=== PATIENT | female | born 1930 | race Caucasian/White ===

== ENCOUNTER → 2017-02-01 | Outpatient (CLI) | payer MEDICARE ==
[~2017-02-01] MED LIST: AMLO5 PO; APIX2.5T PO; ASPI81TA82 PO; ATOR20TA PO; CLOP75 PO; CYAN25003 PO; ESZO3 PO; FURO1TAB93 PO; ISOS30 PO; LISI5 PO; METO25 PO; MIRA33502 PO; NITR.3 SL; SPIR25TA PO; ZOFR4TAB3 SL
== END ==
LOC: CLAB 15:08
PROVIDERS: ATTEND Internal Medicine Cardiovascular Disease
DX: R06.02 Shortness of breath (principal)
CPT/HCPCS: 36415; 85379

== ENCOUNTER 2017-05-18 14:05 | Inpatient (IN) | payer MEDICARE ==
[~2017-05-18] VITALS: Ht 165.1 cm; Wt 71.5 kg
[2017-05-18] VITALS (9 sets, daily range): BP systolic 148–202; BP diastolic 71–103; PULSE 65–85; RESP 18–32; TEMP 97.4–98.4; O2SAT 91–97
[2017-05-18] MEDS ORDERED: FUROSEMIDE 40 MG/4 ML VIAL IV PUSH ONE (14:45)
[2017-05-18] MEDS ORDERED: SODIUM CHLORIDE 0.9% FLUSH 10 ML FLUSH IVF PRN (14:45)
[2017-05-18] MEDS ORDERED: ASPIRIN 81 MG CHEW TAB PO ONE (14:45)
--- NOTE | 2017-05-18 14:49 | PD ---
HPI Chief Complaint: Chest Pain Time Seen by Provider: 14:26 Travel History International Travel<30 days: No Contact w/Intl Traveler<30days: No Traveled to known affect area: No History of Present Illness HPI 86-year-old female with history of CHF, CAD with history of 5 bypasses , and renal insufficiency, presents the emergency department with worsening dyspnea and shortness of breath over the past several days. Patient has had cough at night and inability to lay flat secondary to feeling short of breath. Patient recently traveled to [place] and back for a siblings . Patient denies fever or chills. She denies chest pain just dyspnea and tachypnea. He has no nausea, vomiting, or diarrhea. She denies urinary symptoms. Patient is allergic to sulfa and penicillin. PFSH Past Medical History Hx Anticoagulant Therapy: Yes (plavix) Arthritis: Yes Asthma: No Blood Disorders: No Anxiety: Yes Depression: Yes Heart Rhythm Problems: Yes (Afib) Cancer: Yes (colon) Cardiac Catheterization: Yes Cardiovascular Problems: Yes (pacemaker ) High Cholesterol: Yes Chemotherapy: No Chest Pain: Yes Congestive Heart Failure: Yes COPD: No Cerebrovascular Accident: No Diabetes: No Diminished Hearing: No Diverticulitis: Yes Endocrine: No Gastrointestinal Disorders: Yes (GALLSTONES ) GERD: No Glaucoma: No Genitourinary: No Headaches: Yes Hiatal Hernia: No Hypertension: Yes Immune Disorder: No Musculoskeletal: Yes Neurologic: No Psychiatric: No Reproductive: No Respiratory: No Immunizations Current: No Migraines: No Myocardial Infarction: Yes (X 1) Radiation Therapy: No Seizures: No Sleep Apnea: No Ulcer: No Menopausal: Yes : 3 Para: 2 Miscarriage: 1 Tubal Ligation: Yes Past Surgical History Abdominal Surgery: No AICD: No Appendectomy: No Arteriovenous Shunt: No Cardiac Surgery: Yes (PACEMAKER - FEB 2015) Coronary Artery Bypass Graft: Yes (5 VESSEL 2001) Ear Surgery: No Endocrine Surgery: No Eye Surgery: Yes (CATARACT REMOVAL TO FLORENCIA EYES) Genitourinary Surgery: Yes Gynecologic Surgery: Yes Hysterectomy: Yes Insulin Pump: No Joint Replacement: No Oral Surgery: No Pacemaker: Yes Thoracic Surgery: No Tonsillectomy: Yes Other Surgery: Yes Social History Alcohol Use: No Tobacco Use: No Substance Use: No Allergies-Medications (Allergen,Severity, Reaction): Coded Allergies: Sulfa (Sulfonamide Antibiotics) (Unverified Allergy, Unknown, UNKNOWN, ) penicillin G (Unverified Allergy, Unknown, [facility], 02/26/17) Reported Meds & Prescriptions Reported Meds & Active Scripts Active Metoprolol Tartrate 25 mg (Metoprolol Tartrate) 25 Mg Tab 12.5 Mg PO Q12HR 30 Days Imdur 30 Mg (Isosorbide Mononitrate) 30 Mg Tabcr 30 Mg PO DAILY@07 30 Days Plavix (Clopidogrel Bisulfate) 75 Mg Tab 75 Mg PO DAILY 30 Days Norvasc (Amlodipine Besylate) 5 Mg Tab 5 Mg PO DAILY 30 Days Zofran ODT (Ondansetron HCl) 4 Mg Tab 4 Mg SL Q6H PRN FOR NAUSEA/VOMITING Prinivil 5 mg (Lisinopril) 5 Mg Tab 5 Mg PO DAILY 30 Days Furosemide 40 Mg Tab 40 Mg PO BID@09,18 30 Days Reported Miralax (Polyethylene Glycol) 255 Gm Powd 1 Capful PO DAILY MIX 1 CAPFUL (17 GM) IN 8 OZ OF WATER Vitamin B-12 (Cyanocobalamin) 2,500 Mcg Sub 2,500 Mcg PO DAILY Atorvastatin 20 mg tab (Atorvastatin Calcium) 20 Mg Tab 20 Mg PO HS 30 Days Spironolactone 25 Mg Tab 25 Mg PO BID Aspir-81 (Aspirin) 81 Mg Tab 81 Mg PO DAILY Eliquis (Apixaban) 2.5 Mg Tab 2.5 Mg PO BID Lunesta (Eszopiclone) 3 Mg Tab 3 Mg PO HS PRN Nitrostat (Nitroglycerin) 0.3 Mg Subl 0 SL DIRECTED PRN Review of Systems Except as stated in HPI: all other systems reviewed are Neg General / Constitutional: No: Fever, Chills Eyes: No: Visual changes HENT: No: Headaches Cardiovascular: Positive: Chest Pain or Discomfort (chest tightness), Irregular Rhythm, Dyspnea on exertion, No: Palpitations, Tachycardia, Diaphoresis, Syncope, Varicosities, Edema, Cyanosis, Varicosities, Phlebitis, Claudication Respiratory: Positive: Cough, Shortness of Breath, Orthopnea, No: Wheezing, Sneezing, Hemoptysis, Stridor, Night Sweats, Pleuritic Pain, Other Gastrointestinal: No: Nausea, Vomiting, Diarrhea, Abdominal Pain Genitourinary: No: Urgency, Frequency, Dysuria Musculoskeletal: No: Pain Skin: No Rash Neurologic: No: Weakness Psychiatric: No: Depression Endocrine: No: Polydipsia Hematologic/Lymphatic: No: Easy Bruising Physical Exam Narrative GENERAL: Patient is in mild to moderate distress. She is noted to be tachypneic. SKIN: Warm and dry. Normal color. No diaphoresis. HEAD: Atraumatic. Normocephalic. EYES: Pupils equal and round. No scleral icterus. No injection or drainage. ENT: No nasal bleeding or discharge. Mucous membranes pink and moist. Pharynx is clear. Airway is patent. NECK: Trachea midline. Supple nontender. CARDIOVASCULAR: Irregular rate and rhythm. 2 over 5 systolic murmur noted. RESPIRATORY: No accessory muscle use. Mild crackles in both bases to auscultation. Breath sounds equal bilaterally. No rales or rhonchi. GASTROINTESTINAL: Abdomen soft, non-tender, nondistended. Hepatic and splenic margins not palpable. MUSCULOSKELETAL: Extremities without clubbing, cyanosis, or edema. No obvious deformities. NEUROLOGICAL: Awake and alert. No obvious cranial nerve deficits. Motor grossly within normal limits. Five out of 5 muscle strength in the arms and legs. Normal speech. PSYCHIATRIC: Appropriate mood and affect; insight and judgment normal. Data Data Last Documented VS Vital Signs Date Time Temp Pulse Resp B/P (MAP) Pulse Ox O2 Delivery O2 Flow Rate FiO2 05/18/17 14:56 181/95 (123) 05/18/17 14:36 96 Room Air 05/18/17 14:36 85 24 05/18/17 14:36 98.2 Orders Orders Electrocardiogram (05/18/17 14:32) B-Type Natriuretic Peptide (05/18/17 14:32) Ckmb (Isoenzyme) Profile (05/18/17 14:32) Complete Blood Count With Diff (05/18/17 14:32) Comprehensive Metabolic Panel (05/18/17 14:32) Magnesium (Mg) (05/18/17 14:32) Prothrombin Time / Inr (Pt) (05/18/17 14:32) Act Partial Throm Time (Ptt) (05/18/17 14:32) Troponin I (05/18/17 14:32) Chest, Single Ap (05/18/17 14:32) Ecg Monitoring (05/18/17 14:32) Bilateral Bp Monitoring (05/18/17 14:32) Iv Access Insert/Monitor (05/18/17 14:32) Oximetry (05/18/17 14:32) Oxygen Administration (05/18/17 14:32) Aspirin Chew (Aspirin Chew) (05/18/17 14:45) Sodium Chloride 0.9% Flush (Ns Flush) (05/18/17 14:45) Furosemide Inj (Lasix Inj) (05/18/17 14:45) CKMB (05/18/17 14:42) CKMB% (05/18/17 14:42) Nitroglycerin 2% Oint (Nitroglycerin 2% (05/18/17 16:00) Labs Laboratory Tests Test 05/18/17 14:42 White Blood Count 5.5 TH/MM3 Red Blood Count 4.65 MIL/MM3 Hemoglobin 11.0 GM/DL Hematocrit 34.6 % Mean Corpuscular Volume 74.5 FL Mean Corpuscular Hemoglobin 23.6 PG Mean Corpuscular Hemoglobin Concent 31.7 % Red Cell Distribution Width 19.1 % Platelet Count 227 TH/MM3 Mean Platelet Volume 7.9 FL Neutrophils (%) (Auto) 70.9 % Lymphocytes (%) (Auto) 13.4 % Monocytes (%) (Auto) 10.5 % Eosinophils (%) (Auto) 4.4 % Basophils (%) (Auto) 0.8 % Neutrophils # (Auto) 3.9 TH/MM3 Lymphocytes # (Auto) 0.7 TH/MM3 Monocytes # (Auto) 0.6 TH/MM3 Eosinophils # (Auto) 0.2 TH/MM3 Basophils # (Auto) 0.0 TH/MM3 CBC Comment DIFF FINAL Differential Comment Prothrombin Time 12.0 SEC Prothromb Time International Ratio 1.1 RATIO Activated Partial Thromboplast Time 28.2 SEC Blood Urea Nitrogen 26 MG/DL Creatinine 1.68 MG/DL Random Glucose 96 MG/DL Total Protein 7.3 GM/DL Albumin 3.8 GM/DL Calcium Level 8.9 MG/DL Magnesium Level 2.0 MG/DL Alkaline Phosphatase 111 U/L Aspartate Amino Transf (AST/SGOT) 33 U/L Alanine Aminotransferase (ALT/SGPT) 26 U/L Total Bilirubin 1.4 MG/DL Sodium Level 137 MEQ/L Potassium Level 4.1 MEQ/L Chloride Level 106 MEQ/L Carbon Dioxide Level 21.1 MEQ/L Anion Gap 10 MEQ/L Estimat Glomerular Filtration Rate 29 ML/MIN Total Creatine Kinase 234 U/L Creatine Kinase MB 7.4 NG/ML Creatine Kinase MB % 3.2 % Troponin I 0.06 NG/ML B-Type Natriuretic Peptide 372 PG/ML [facility] Medical Decision Making Medical Screen Exam Complete: Yes Emergency Medical Condition: Yes Medical Record Reviewed: Yes Differential Diagnosis Increasing dyspnea. CHF. Cardiac syndrome. Bronchitis. Pneumonia. Narrative Course Patient is tachypneic but appears medically stable at time of exam. She is able to speak in short sentences. EKG shows a regular rhythm, chronic ventricular pacemaker noted. There are nonspecific ST changes Chest x-ray is ordered. IV access is obtained and labs ordered including CBC, CMP, proBNP, PT PTT and INR. Urinalysis. Patient is given aspirin 324 mg by mouth. Patient is given Lasix 40 mg IV. Chest x-ray is read as negative for acute process per the radiologist. CBC shows hematocrit of 34.6, and hemoglobin of 11.0, consistent with chronic microcytic anemia. CMP is significant for BUN of 26, creatinine 1.68, GFR 29. ProBNP is 327, troponin is elevated 0.06. CK-MB is elevated at 7.4. Total creatinine kinase is 234. Coagulation studies show PT of 12.0, INR 1.1. Patient was discussed with Dr. Barbour who recommends 1 inch of nitroglycerin 2 % paste, and admission to the CICU. Call was placed to hospitalist for admission. Diagnosis Primary Impression: Chest pain at rest Additional Impressions: Elevated troponin Acute dyspnea Admitting Information Admitting Physician Requests: Admit Condition: Stable Arden Perez May 18, 2017 14:49
--- NOTE | 2017-05-18 15:01 | RADRPT ---
EXAM DATE/TIME: 05/18/2017 14:58 [facility] COMPARISON: CHEST SINGLE AP, May 03, 2016, 14:07. INDICATIONS : Chest pain. Cough. Short of breath. MEDICAL HISTORY : Myocardial infarction. SURGICAL HISTORY : CABG. Pacemaker. ENCOUNTER: Initial ACUITY: 1 week PAIN SCORE: 0/10 LOCATION: Bilateral chest FINDINGS: No infiltrate, effusion or pneumothorax. Heart size stable, upper limits of normal. Thoracic aorta is tortuous. There is a left-sided cardiac pacer. Previous median sternotomy. CONCLUSION: No evidence of acute cardiopulmonary disease. Tomasz Pink MD on May 18, 2017 at 14:59 Board Certified Radiologist. This report was verified electronically.
[2017-05-18 15:03] LABS: AUTOMATED NEUTROPHIL # 3.9 TH/MM3 (1.8-7.7); BASOPHIL % 0.8 % (0.0-2.0); EOSINOPHIL # 0.2 TH/MM3 (0-0.4); EOSINOPHIL % 4.4 % (0.0-4.0); HEMATOCRIT 34.6 % (35.0-46.0); LYMPH % 13.4 % (9.0-44.0); LYMPHOCYTE # 0.7 TH/MM3 (1.0-4.8); MEAN CELL VOLUME 74.5 FL (80.0-100.0); MEAN CORPUSCULAR HEMOGLOBIN 23.6 PG (27.0-34.0); MEAN CORPUSCULAR HGB CONC 31.7 % (32.0-36.0); MEAN PLATELET VOLUME 7.9 FL (7.0-11.0); MONO % 10.5 % (0.0-8.0); MONOCYTE # 0.6 TH/MM3 (0-0.9); NEUT % 70.9 % (16.0-70.0); PLATELET COUNT 227 TH/MM3 (150-450); RED BLOOD COUNT 4.65 MIL/MM3 (4.00-5.30); RED CELL DISTRIBUTION WIDTH 19.1 % (11.6-17.2); WHITE BLOOD COUNT 5.5 TH/MM3 (4.0-11.0)
[2017-05-18 15:38] LABS: ALBUMIN 3.8 GM/DL (3.4-5.0); ALT (GPT) 26 U/L (10-53); AST (GOT) 33 U/L (15-37); BICARBONATE 21.1 MEQ/L (21.0-32.0); BLOOD UREA NITROGEN 26 MG/DL (7-18); CALCIUM 8.9 MG/DL (8.5-10.1); CHLORIDE 106 MEQ/L (98-107); CREATININE 1.68 MG/DL (0.50-1.00); GLOMERULAR FILTRATION RATE 29 ML/MIN (>89); GLUCOSE,RANDOM 96 MG/DL (74-106); SODIUM (NA) 137 MEQ/L (136-145)
[2017-05-18 15:41] LABS: ALKALINE PHOSPHATASE 111 U/L (45-117); TOTAL BILIRUBIN ADULT 1.4 MG/DL (0.2-1.0); TOTAL PROTEIN 7.3 GM/DL (6.4-8.2); TROPONIN I 0.06 NG/ML (0.02-0.05)
[2017-05-18 15:44] LABS: INTERNATIONAL NORMALIZED RATIO 1.1 RATIO
[2017-05-18] MEDS ORDERED: NITROGLYCERIN 2% OINT 1 GM PACKET TOPICAL ONE (16:00)
[2017-05-18] MEDS ORDERED: SENNOSIDES 8.6 MG TAB PO PRN (16:30)
[2017-05-18] MEDS ORDERED: METOPROLOL TARTRATE 5 MG/5 ML VIAL IVS SCH (16:30)
[2017-05-18] MEDS ORDERED: SODIUM CHLORIDE 0.9% FLUSH 10 ML FLUSH IV FLUSH PRN (16:30)
[2017-05-18] MEDS ORDERED: MAGNESIUM HYDROXIDE SUSP 30 ML CUP PO PRN (16:30)
[2017-05-18] MEDS ORDERED: LACTULOSE SYRUP 20 GM/30 ML CUP PO PRN (16:30)
[2017-05-18] MEDS ORDERED: ONDANSETRON HCL 4 MG/2 ML VIAL IVP PRN (16:30)
[2017-05-18] MEDS ORDERED: BISACODYL 10 MG SUPP RECTAL PRN (16:30)
[2017-05-18] MEDS ORDERED: NALOXONE HCL 0.4 MG/ML AMP IV PUSH PRN (16:30)
[2017-05-18] MEDS ORDERED: SPIR25TA PO (16:51)
[2017-05-18] MEDS ORDERED: ATOR20TA15 PO (16:51)
[2017-05-18] MEDS ORDERED: ASPI81CH CHEW (16:51)
[2017-05-18] MEDS ORDERED: ESZO1TAB PO (16:51)
[2017-05-18] MEDS ORDERED: FURO20TA PO (16:51)
[2017-05-18] MEDS ORDERED: ISOS20TA PO (16:51)
[2017-05-18] MEDS ORDERED: PLAV75TA29 PO (16:51)
--- NOTE | 2017-05-18 18:06 | HHI.HP ---
[facility] Piter Mendoza MD Admission Diagnosis Chest Pain/Elevated Troponin Diagnoses: Chief Complaint: Chest pressure, shortness of breath Travel History International Travel<30 Days: No Contact w/Intl Traveler <30 Da: No Traveled to Known Affected Are: No History of Present Illness Written by Kyle Delgado, acting as scribe for Dr. Britton on 05/18/17 at 17:49. Patient is an 86-year-old female with primary medical history of CHF, CAD, CKD3 , arthritis, HTN, HLD, A. fib with GI bleed who came into the hospital for complaints of pressure in the chest, shortness of breath worsening. Patient states that in the past few days she has been having some shortness of breath, and also some dry cough. States that her brother just and she went to [place] for the and she was in the car for about 4 days. Reports that she had missed maybe 2 days of her Lasix medication because she was trying not to have to use the restroom often, but also states that right before going to [place], patient already had some shortness of breath and some chest pressure. Denies any anginal pain. Patient complains of right shoulder pain, attributes to arthritis but states it just started when she came to the hospital. Denies orthopnea. Denies any palpitations, headaches, dizziness. Denies any fevers, chills, nausea, vomiting, diarrhea. Review of Systems Except as stated in HPI: all other systems reviewed are Neg Past Family Social History Past Medical History CHF CAD CKD III Arthritis CVA - lacunar infarct HTN HLD A. fib GI bleed 2 -(Eliquis and xarelto use prior) Diverticulitis 6 sinus syndrome, status post PPM Past Surgical History CABG 5 PPM placement - secondary to sick sinus syndrome Cataract surgery Tonsillectomy Hysterectomy Reported Medications Reported Meds & Active Scripts Active Reported Aspirin 81 Mg Chew 81 Mg CHEW DAILY Plavix (Clopidogrel Bisulfate) 75 Mg Tab 75 Mg PO DAILY Spironolactone 25 Mg Tab 25 Mg PO BIDPC Atorvastatin (Atorvastatin Calcium) 20 Mg Tab 20 Mg PO HS Furosemide 20 Mg Tab 20 Mg PO BID Isosorbide Mononitrate 20 Mg Tab 30 Mg PO DAILY Take 2 doses 7 hours apart. Lunesta (Eszopiclone) 2 Mg Tab 3 Mg PO HS PRN Allergies: Coded Allergies: Sulfa (Sulfonamide Antibiotics) (Unverified Allergy, Unknown, UNKNOWN, ) penicillin G (Unverified Allergy, Unknown, [place], 02/26/17) Active Ordered Medications Current Medications Medications (Trade) Dose Ordered Sig/Little Route Start Time Stop Time Status Last Admin (NS Flush) 2 ml UNSCH PRN IV FLUSH 05/18/17 16:30 (NS Flush) 2 ml BID IV FLUSH 05/18/17 21:00 (Zofran Inj) 4 mg Q6H PRN IVP 05/18/17 16:30 (Narcan Inj) 0.4 mg UNSCH PRN IV PUSH 05/18/17 16:30 (Candie-Colace) 1 tab BID PO 05/18/17 21:00 (Milk Of Magnesia Liq) 30 ml Q12H PRN PO 05/18/17 16:30 (Senokot) 17.2 mg Q12H PRN PO 05/18/17 16:30 (Dulcolax Supp) 10 mg DAILY PRN RECTAL 05/18/17 16:30 (Lactulose Liq) 30 ml DAILY PRN PO 05/18/17 16:30 Family History Brother recently of fluid in his heart, CHF Father at the age of 64 due to CHF Social History Lives with Denies alcohol use and denies tobacco use Denies illicit drug use Physical Exam Vital Signs Vital Signs Date Time Temp Pulse Resp B/P (MAP) Pulse Ox O2 Delivery O2 Flow Rate FiO2 05/18/17 17:30 05/18/17 16:58 73 20 148/71 (96) 94 Room Air 05/18/17 16:45 65 20 170/85 (113) 96 Room Air 05/18/17 16:40 77 20 171/87 (115) 95 Room Air 05/18/17 14:56 181/95 (123) 05/18/17 14:36 96 Room Air 05/18/17 14:36 85 24 97 Room Air 05/18/17 14:36 18 96 Room Air 05/18/17 14:36 98.2 85 20 202/103 (136) 96 Room Air 05/18/17 14:08 98.4 77 32 189/86 (120) 91 Physical Exam GENERAL: elderly female, appears comfortable SKIN: Warm and dry. HEAD: Normocephalic. EYES: Pupils equal round and reactive. Extraocular motions intact. No scleral icterus. No injection or drainage. ENT: Nose without bleeding. Throat without erythema. Uvula midline. Airway patent. NECK: Trachea midline. No JVD or lymphadenopathy. Supple. CARDIOVASCULAR: somewhat irregular without murmurs RESPIRATORY: Breath sounds equal bilaterally. No wheezes , no obvious crackles GASTROINTESTINAL: Abdomen soft, nondistended. some discomfort to deep palpation. Bowel sounds active 4. MUSCULOSKELETAL: Extremities without edema. Right upper extremity discomfort w palpation of the shoulder joint but ROM is not limited. NEUROLOGICAL: Awake and alert. Oriented to person, place, time. Motor and sensory grossly within normal limits. Normal speech. Laboratory Laboratory Tests Test 05/18/17 14:42 White Blood Count 5.5 Red Blood Count 4.65 Hemoglobin 11.0 Hematocrit 34.6 Mean Corpuscular Volume 74.5 Mean Corpuscular Hemoglobin 23.6 Mean Corpuscular Hemoglobin Concent 31.7 Red Cell Distribution Width 19.1 Platelet Count 227 Mean Platelet Volume 7.9 Neutrophils (%) (Auto) 70.9 Lymphocytes (%) (Auto) 13.4 Monocytes (%) (Auto) 10.5 Eosinophils (%) (Auto) 4.4 Basophils (%) (Auto) 0.8 Neutrophils # (Auto) 3.9 Lymphocytes # (Auto) 0.7 Monocytes # (Auto) 0.6 Eosinophils # (Auto) 0.2 Basophils # (Auto) 0.0 CBC Comment DIFF FINAL Differential Comment Prothrombin Time 12.0 Prothromb Time International Ratio 1.1 Activated Partial Thromboplast Time 28.2 Blood Urea Nitrogen 26 Creatinine 1.68 Random Glucose 96 Total Protein 7.3 Albumin 3.8 Calcium Level 8.9 Magnesium Level 2.0 Alkaline Phosphatase 111 Aspartate Amino Transf (AST/SGOT) 33 Alanine Aminotransferase (ALT/SGPT) 26 Total Bilirubin 1.4 Sodium Level 137 Potassium Level 4.1 Chloride Level 106 Carbon Dioxide Level 21.1 Anion Gap 10 Estimat Glomerular Filtration Rate 29 Total Creatine Kinase 234 Creatine Kinase MB 7.4 Creatine Kinase MB % 3.2 Troponin I 0.06 B-Type Natriuretic Peptide 372 Result Diagram: 05/18/17 1442 05/18/17 1442 Imaging Last Impressions Chest X-Ray 05/18/17 1432 Signed Impressions: Service Date/Time: Thursday, May 18, 2017 14:58 - CONCLUSION: No evidence of acute cardiopulmonary disease. MD Mike Recio VTE Risk Assessment Caprini VTE Risk Assessment: Mod/High Risk (score >= 2) Caprini Risk Assessment Model Point Value = 1 Point Value = 2 Point Value = 3 Point Value = 5 Age 41-60 Minor surgery BMI > 25 kg/m2 Swollen legs Varicose veins or History of unexplained or recurrent spontaneous Oral contraceptives or hormone replacement Sepsis (< 1 month) Serious lung disease, including pneumonia (< 1 month) Abnormal pulmonary function Acute myocardial infarction Congestive heart failure (< 1 month) History of inflammatory bowel disease Medical patient at bed rest Age 61-74 Arthroscopic surgery Major open surgery (> 45 min) Laparoscopic surgery (> 45 min) Malignancy Confined to bed (> 72 hours) Immobilizing plaster cast Central venous access Age >= 75 History of VTE Family history of VTE Factor V Leiden Prothrombin [id number] Lupus anticoagulant Anticardiolipin antibodies Elevated serum homocysteine Heparin-induced thrombocytopenia Other congenital or acquired thrombophilia Stroke (< 1 month) Elective arthroplasty Hip, pelvis, or leg fracture Acute spinal cord injury (< 1 month) Prophylaxis Regimen Total Risk Factor Score Risk Level Prophylaxis Regimen 0-1 Low Early ambulation 2 Moderate Order ONE of the following: *Sequential Compression Device (SCD) *Heparin 5000 units SQ BID 3-4 Higher Order ONE of the following medications: *Heparin 5000 units SQ TID *Enoxaparin/Lovenox 40 mg SQ daily (WT < 150 kg, CrCl > 30 mL/min) *Enoxaparin/Lovenox 30 mg SQ daily (WT < 150 kg, CrCl > 10-29 mL/min) *Enoxaparin/Lovenox 30 mg SQ BID (WT < 150 kg, CrCl > 30 mL/min) AND/OR *Sequential Compression Device (SCD) 5 or more Highest Order ONE of the following medications: *Heparin 5000 units SQ TID (Preferred with Epidurals) *Enoxaparin/Lovenox 40 mg SQ daily (WT < 150 kg, CrCl > 30 mL/min) *Enoxaparin/Lovenox 30 mg SQ daily (WT < 150 kg, CrCl > 10-29 mL/min) *Enoxaparin/Lovenox 30 mg SQ BID (WT < 150 kg, CrCl > 30 mL/min) AND *Sequential Compression Device (SCD) Assessment and Plan Problem List: (1) Acute exacerbation of CHF (congestive heart failure) ICD Code: I50.9 - Heart failure, unspecified Status: Acute (2) Acute dyspnea ICD Code: R06.00 - Dyspnea, unspecified Status: Acute (3) Elevated troponin ICD Code: R74.8 - Abnormal levels of other serum enzymes Status: Acute (4) CKD (chronic kidney disease) ICD Code: N18.9 - Chronic kidney disease Status: Chronic (5) CAD (coronary artery disease) ICD Code: I25.10 - CAD (coronary artery disease) Status: Chronic (6) Atrial fibrillation ICD Code: I48.91 - Atrial fibrillation Status: Chronic (7) Hypertension ICD Code: I10 - Hypertension Status: Chronic Assessment and Plan Patient is an 86-year-old female with primary medical history of CHF, CAD, CKD 3 , arthritis, HTN, HLD, A. fib with GI bleed who came into the hospital for complaints of pressure in the chest, shortness of breath worsening. Acute exacerbation of CHF CHF, diastolic dysfunction- last ECHO in the inpatient setting 2014, EF 50-55% - Worsening shortness of breath, dry cough, patient has missed a couple of her doses of Lasix from home - Chest x-ray showed no evidence of acute cardiopulmonary disease - BNP 372 - Lasix IV 40 mg given in ED, pt responded to this and felt better, will continue Lasix 40mg, spironolactone - Fluid restriction, 1500 ML's fluids daily, low sodium diet - EKG reviewed - Consult cardiology, patient is known to Dr. Mendoza - Check 2D echo as there isn't one on file Patient complaints of chest pressure, rule out ACS - Trop 0.06 - Serial EKG, serial troponin serial CK - Nitroglycerin, morphine when necessary, on ASA/plavix Acute Kidney Injury, on chronic kidney disease - Baseline 1.2 - 1.5, slightly elevated at 1.68 - Avoid nephrotoxins - Will not give fluid hydration secondary to worsening CHF - Monitor renal indices Atrial fibrillation, chronic - Had 2 times GI bleed secondary to Xarelto and Eliquis use - Continue Plavix and aspirin HTN- somewhat elevated. home meds resumed. added clonidine/hydralazine prn BP > 160/90 HLD-home med resumed CABG x5 Hx PPM - SSS - Continue home meds isosorbide, spironolactone - Monitor BP trend DVT prop SCD This note was transcribed by alfonso Delgado. I, Dr. Cookie Britton personally performed the history, physical exam, and medical decision making; and confirmed the accuracy of the information in the transcribed note. Authenticated by Dr. Cookie Britton on 05/18/17 at 1740. Code Status DO NOT RESUSCITATE Discussed Condition With Patient, , nursing, ED attending Physician Certification 2 Midnight Certification Type: Admission for Inpatient Services Order for Inpatient Services The services are ordered in accordance with Medicare regulations or non- Medicare payer requirements, as applicable. In the case of services not specified as inpatient-only, they are appropriately provided as inpatient services in accordance with the 2-midnight benchmark. Estimated LOS (days): 2 days is the estimated time the patient will need to remain in the hospital, assuming treatment plan goals are met and no additional complications. Post-Hospital Plan: Home Problem Qualifiers (1) Acute exacerbation of CHF (congestive heart failure): Qualified Codes: I50.9 - Heart failure, unspecified Kyle Lauren May 18, 2017 18:06 Cookie Britton MD May 18, 2017 21:27
[2017-05-18] MEDS: CLOPIDOGREL 75 MG TAB PO SCH (18:30)
[2017-05-18] MEDS ORDERED: NITROGLYCERIN 0.3 MG SL 100 TABS/BTL SL PRN (18:30)
[2017-05-18 20:47] LABS: TROPONIN I 0.07 NG/ML (0.02-0.05)
[2017-05-18] MEDS: SODIUM CHLORIDE 0.9% FLUSH 10 ML FLUSH IV FLUSH SCH (21:00)
[2017-05-18] MEDS: DOCUSATE SODIUM 50 MG/SENNA 8.6 MG TAB PO SCH (21:00)
[2017-05-18] MEDS: ATORVASTATIN 20 MG TAB PO SCH (21:00)
[2017-05-18] MEDS ORDERED: cloNIDine HCL 0.1 MG TAB PO PRN (21:30)
[2017-05-18] MEDS ORDERED: hydrALAZINE HCL 10 MG TAB PO PRN (21:30)
[2017-05-18] MEDS ORDERED: ESZOPICLONE 3 MG TAB PO ONE (22:00)
[2017-05-19] VITALS (7 sets, daily range): BP systolic 122–160; BP diastolic 60–86; PULSE 54–89; RESP 16–18; TEMP 97.7–98.1; O2SAT 95–98
[2017-05-19 01:38] LABS: AUTOMATED NEUTROPHIL # 5.2 TH/MM3 (1.8-7.7); BASOPHIL % 0.6 % (0.0-2.0); EOSINOPHIL # 0.3 TH/MM3 (0-0.4); EOSINOPHIL % 4.9 % (0.0-4.0); HEMATOCRIT 34.4 % (35.0-46.0); HEMOGLOBIN 10.7 GM/DL (11.6-15.3); LYMPH % 8.6 % (9.0-44.0); LYMPHOCYTE # 0.6 TH/MM3 (1.0-4.8); MEAN CELL VOLUME 74.7 FL (80.0-100.0); MEAN CORPUSCULAR HEMOGLOBIN 23.3 PG (27.0-34.0); MEAN CORPUSCULAR HGB CONC 31.2 % (32.0-36.0); MEAN PLATELET VOLUME 7.2 FL (7.0-11.0); MONO % 9.2 % (0.0-8.0); MONOCYTE # 0.6 TH/MM3 (0-0.9); NEUT % 76.7 % (16.0-70.0); PLATELET COUNT 218 TH/MM3 (150-450); RED BLOOD COUNT 4.61 MIL/MM3 (4.00-5.30); RED CELL DISTRIBUTION WIDTH 19.3 % (11.6-17.2); WHITE BLOOD COUNT 6.8 TH/MM3 (4.0-11.0)
[2017-05-19 01:55] LABS: BICARBONATE 23.7 MEQ/L (21.0-32.0); CALCIUM 8.9 MG/DL (8.5-10.1); CREATININE 1.72 MG/DL (0.50-1.00)
[2017-05-19 01:58] LABS: TROPONIN I 0.07 NG/ML (0.02-0.05)
--- NOTE | 2017-05-19 06:51 | HHI.PR ---
Subjective Remarks Patient seen and examined this am. Saturating 97% on 4L. BP is stable. Complaining of some left sided rib pain for several months. Denies CP or SOB. BP elevated overnight and required some prn clonodine. Reports overall feels better. Objective Vital Signs Date Time Temp Pulse Resp B/P (MAP) Pulse Ox O2 Delivery O2 Flow Rate FiO2 05/19/17 04:00 97.8 80 18 160/86 (110) 97 05/19/17 04:00 80 05/19/17 04:00 97 Nasal Cannula 4.00 05/19/17 02:00 92 Nasal Cannula 4.00 05/19/17 00:00 71 18 157/86 (109) 96 05/19/17 00:00 96 Nasal Cannula 2.00 05/19/17 00:00 70 05/18/17 22:50 Nasal Cannula 2.00 05/18/17 21:24 97.4 72 18 151/84 (106) 94 05/18/17 20:00 93 Nasal Cannula 2.00 05/18/17 20:00 68 05/18/17 19:00 94 Room Air 05/18/17 18:00 97.5 68 18 164/85 (111) 97 05/18/17 18:00 68 05/18/17 18:00 97 Nasal Cannula 2.00 05/18/17 17:30 05/18/17 16:58 73 20 148/71 (96) 94 Room Air 05/18/17 16:45 65 20 170/85 (113) 96 Room Air 05/18/17 16:40 77 20 171/87 (115) 95 Room Air 05/18/17 14:56 181/95 (123) 05/18/17 14:36 96 Room Air 05/18/17 14:36 85 24 97 Room Air 05/18/17 14:36 18 96 Room Air 05/18/17 14:36 98.2 85 20 202/103 (136) 96 Room Air 05/18/17 14:08 98.4 77 32 189/86 (120) 91 I/O 05/18/17 05/18/17 05/18/17 05/19/17 05/19/17 05/19/17 07:00 15:00 23:00 07:00 15:00 23:00 Intake Total 240 ml Output Total 440 ml 1150 ml Balance -440 ml -910 ml Intake Oral 240 ml Output Urine Total 440 ml 1150 ml # Voids 1 # Bowel Movements 0 Result Diagram: 05/19/177 05/19/17 0127 Imaging Last Impressions Chest X-Ray 05/18/17 1432 Signed Impressions: Service Date/Time: Thursday, May 18, 2017 14:58 - CONCLUSION: No evidence of acute cardiopulmonary disease. Tomasz Pink MD Other Results GENERAL: sitting up eating breakfast, nad SKIN: Warm and dry. HEAD: Normocephalic. EYES: No scleral icterus. No injection or drainage. NECK: Supple, trachea midline. No JVD or lymphadenopathy. CARDIOVASCULAR: Regular rate and rhythm without murmurs, gallops, or rubs. RESPIRATORY: Breath sounds equal bilaterally. No accessory muscle use. GASTROINTESTINAL: Abdomen soft, non-tender, nondistended. MUSCULOSKELETAL: No cyanosis, or edema. Tenderness with palpation of left mid back over ribs. BACK: Nontender without obvious deformity. No CVA tenderness. A/P Problem List: (1) HTN (hypertension) ICD Code: I10 - HTN (hypertension) Status: Acute (2) Coronary artery disease ICD Code: I25.10 - Coronary artery disease Status: Acute (3) Lower GI bleed ICD Code: K92.2 - Gastrointestinal hemorrhage, unspecified Status: Acute (4) Acute exacerbation of CHF (congestive heart failure) ICD Code: I50.9 - Heart failure, unspecified Status: Acute (5) Atrial fibrillation ICD Code: I48.91 - Atrial fibrillation Status: Chronic (6) Chest pain at rest ICD Code: R07.9 - Chest pain, unspecified Status: Acute Assessment and Plan In summary, this is an 86 yo female who presented to the ED for CP and SOB after missing several doses of her lasix. Currently being treated for CHF exacerbation and ACS rule out. Acute exacerbation of CHF CHF, diastolic dysfunction- last ECHO in the inpatient setting 2014, EF 50-55% - missed a couple of her doses of Lasix from home - Chest x-ray showed no evidence of acute cardiopulmonary disease - BNP 372 - Continue Lasix 40mg, spironolactone - Fluid restriction, 1500 ML's fluids daily, low sodium diet - ACS rule out as below - Consult cardiology, patient is known to Dr. Mendoza - Check 2D echo - have pacemaker interrogated Patient complaints of chest pressure, rule out ACS - Trop 0.06, 0.07, 0.07 - CELSO therapy, on ASA/plavix Acute Kidney Injury, on chronic kidney disease - Baseline 1.2 - 1.5, slightly elevated at 1.72 - Avoid nephrotoxins - Will not give fluid hydration secondary to worsening CHF - Monitor renal indices Atrial fibrillation, chronic - Hx of GI bleed secondary to Xarelto and Eliquis use - Continue Plavix and aspirin HTN- somewhat elevated. home meds resumed. added clonidine/hydralazine prn BP > 160/90 HLD-home med resumed CABG x5 Hx PPM - SSS - Continue home meds isosorbide, spironolactone - Monitor BP trend Insomnia- resume home meds Back pain- motrin DVT prop SCD Discharge Planning D/C pending cardiac clearance and improved clinical status. Case discussed with nurse. Problem Qualifiers (1) Acute exacerbation of CHF (congestive heart failure): Qualified Codes: I50.9 - Heart failure, unspecified Rafaela Barros MD May 19, 2017 06:51
[2017-05-19] MEDS ORDERED: ACETAMINOPHEN 325 MG TAB PO ONE (09:00)
[2017-05-19] MEDS ORDERED: FUROSEMIDE 40 MG/4 ML VIAL IV PUSH SCH (09:00)
[2017-05-19] MEDS: ASPIRIN 81 MG CHEW TAB CHEW SCH (09:00)
[2017-05-19] MEDS: ISOSORBIDE MONONITRATE 30 MG TAB PO SCH (09:34)
[2017-05-19] MEDS: SPIRONOLACTONE 25 MG TAB PO SCH ×2 (09:35→18:31)
[2017-05-19] MEDS: CLOPIDOGREL 75 MG TAB PO SCH (09:35)
[2017-05-19] MEDS: DOCUSATE SODIUM 50 MG/SENNA 8.6 MG TAB PO SCH ×2 (09:36→20:39)
[2017-05-19] MEDS: SODIUM CHLORIDE 0.9% FLUSH 10 ML FLUSH IV FLUSH SCH ×2 (09:37→20:38)
--- NOTE | 2017-05-19 11:38 | EKG ---
Date Performed: 05/18/2017 Time Performed: 14:42:38 PTAGE: 86 years EKG: Atrial fibrillation with demand ventricular pacing ABNORMAL ECG PREVIOUS TRACING : 05/03/2016 13.56 DOCTOR: Krzysztof De La Rosa Interpretating Date/Time 05/19/2017 11:37:19
--- NOTE | 2017-05-19 13:13 | EKG ---
Date Performed: 05/18/2017 Time Performed: 19:07:18 PTAGE: 86 years EKG: Atrial fibrillation Possible ventricular demand pacing. Leftward axis Extensive ST-T change s are possibly due to ischemia Abnormal ECG NO PREVIOUS TRACING DOCTOR: Andrew Sethi Interpretating Date/Time 05/19/2017 13:12:57
--- NOTE | 2017-05-19 17:20 | ECHRPT ---
Indication: heart failure CONCLUSIONS The left ventricular systolic function is low normal with an estimated ejection fraction in the rang e of 50- 55%. Mild mitral valve regurgitation. Mild aortic valve regurgitation. There is moderate tricuspid regurgitation. Mild pulmonary valve regurgitation. BP: / HR: Rhythm: MEASUREMENTS (Male / Female) Normal Values Technical Quality:Poor 2D ECHO LV Diastolic Diameter PLAX 3.2 cm 4.2 - 5.9 / 3.9 - 5.3 cm LV Systolic Diameter PLAX 2.5 cm IVS Diastolic Thickness 2.1 cm 0.6 - 1.0 / 0.6 - 0.9 cm LVPW Diastolic Thickness 1.1 cm 0.6 - 1.0 / 0.6 - 0.9 cm LV Relative Wall Thickness 1.0 RV Internal Dim ED PLAX 3.3 cm M-MODE Aortic Root Diameter MM 3.5 cm LA Systolic Diameter MM 3.8 cm LA Ao Ratio MM 1.1 AV Cusp Separation MM 2.1 cm DOPPLER LV E' Lateral Velocity 8.9 cm/s LV E' Septal Velocity 7.1 cm/s TR Peak Velocity 281.0 cm/s TR Peak Gradient 31.6 mmHg Right Atrial Pressure 10.0 mmHg Pulmonary Artery Systolic Pressu 41.6 mmHg Right Ventricular Systolic Press 41.6 mmHg FINDINGS LEFT VENTRICLE The left ventricular systolic function is low normal with an estimated ejection fraction in the rang e of 50- 55%. Normal left ventricular size. There is assymetric septal hypertrophy. RIGHT VENTRICLE The right ventricular size is normal. The right ventricular systoilc function is normal. A pacemaker wire is noted. LEFT ATRIUM The left atrial size is yugvydiu-bu-shhadihn dilated. RIGHT ATRIUM The right atrial size is moderately dilated. ATRIAL SEPTUM Normal atrial septal thickness. AORTA The aortic root and proximal ascending aorta are normal in size on limited imaging. MITRAL VALVE Mild mitral valve regurgitation. Structurally normal mitral valve. No mitral valve stenosis. AORTIC VALVE Trileaflet aortic valve. Aortic valve sclerosis is present. Mild aortic valve regurgitation. No aortic valve stenosis. TRICUSPID VALVE There is moderate tricuspid regurgitation. Structurally normal tricuspid valve. The estimated pulmonary arterial pressure is 41.6 mmHg. No tricuspid valve stenosis. PULMONARY VALVE The pulmonary valve is not well visualized. Mild pulmonary valve regurgitation. Jose L Harmon DO (Electronically Signed) Final Date:19 May 2017 17:19
[2017-05-19] MEDS: ATORVASTATIN 20 MG TAB PO SCH (20:39)
[2017-05-19] MEDS ORDERED: ESZOPICLONE 3 MG TAB PO PRN (21:00)
--- NOTE | 2017-05-19 22:00 | EKG ---
Date Performed: 05/19/2017 Time Performed: 18:26:44 PTAGE: 86 years EKG: Atrial fibrillation with ventricular demand pacing. Left axis deviation ST/T changes, consi chelsea anterolateral ischemia Abnormal ECG PREVIOUS TRACING : 05/18/2017 19.07 No significant change from previous tracing noted. DOCTOR: Andrew Sethi Interpretating Date/Time 05/19/2017 21:59:38
[2017-05-20] VITALS (12 sets, daily range): BP systolic 128–149; BP diastolic 63–76; PULSE 58–84; RESP 16–18; TEMP 97.5–98.6; O2SAT 93–97
[2017-05-20 06:00] LABS: AUTOMATED NEUTROPHIL # 3.3 TH/MM3 (1.8-7.7); BASOPHIL # 0.1 TH/MM3 (0-0.2); EOSINOPHIL # 0.4 TH/MM3 (0-0.4); EOSINOPHIL % 7.5 % (0.0-4.0); HEMATOCRIT 34.7 % (35.0-46.0); HEMOGLOBIN 11.1 GM/DL (11.6-15.3); LYMPH % 11.8 % (9.0-44.0); LYMPHOCYTE # 0.6 TH/MM3 (1.0-4.8); MEAN CORPUSCULAR HEMOGLOBIN 23.6 PG (27.0-34.0); MEAN CORPUSCULAR HGB CONC 31.9 % (32.0-36.0); MEAN PLATELET VOLUME 7.4 FL (7.0-11.0); MONO % 13.3 % (0.0-8.0); MONOCYTE # 0.7 TH/MM3 (0-0.9); NEUT % 66.4 % (16.0-70.0); PLATELET COUNT 235 TH/MM3 (150-450); RED BLOOD COUNT 4.69 MIL/MM3 (4.00-5.30); RED CELL DISTRIBUTION WIDTH 18.6 % (11.6-17.2)
[2017-05-20 06:18] LABS: CALCIUM 8.8 MG/DL (8.5-10.1); CREATININE 1.72 MG/DL (0.50-1.00)
--- NOTE | 2017-05-20 07:56 | HHI.PR ---
Subjective Remarks Feeling much better. No chest pain, SOB much improved, no nausea or vomiting. slept well last night. RN tells me that one of Dr. Mendoza's new partners did see the patient but stated that Dr. Mendoza would see patient today. Objective Vitals Vital Signs Date Time Temp Pulse Resp B/P (MAP) Pulse Ox O2 Delivery O2 Flow Rate FiO2 05/20/17 04:00 58 16 139/65 (89) 94 05/20/17 04:00 58 05/20/17 04:00 94 Nasal Cannula 4.00 05/20/17 00:00 96 Nasal Cannula 4.00 05/20/17 00:00 60 18 145/76 (99) 96 05/20/17 00:00 84 05/19/17 20:00 97 Nasal Cannula 4.00 05/19/17 20:00 84 05/19/17 20:00 97.7 89 18 148/84 (105) 97 05/19/17 15:00 70 05/19/17 15:00 97.8 70 18 122/60 (80) 96 05/19/17 15:00 96 Nasal Cannula 4.00 05/19/17 11:00 54 05/19/17 11:00 98 Nasal Cannula 3.50 05/19/17 11:00 98.1 54 16 141/67 (91) 98 05/19/17 08:00 62 I/O 05/19/17 05/19/17 05/19/17 05/20/17 05/20/17 05/20/17 07:00 15:00 23:00 07:00 15:00 23:00 Intake Total 240 ml 480 ml 480 ml Output Total 1150 ml 1150 ml 450 ml Balance -910 ml -670 ml 30 ml Intake Oral 240 ml 480 ml 480 ml Output Urine Total 1150 ml 1150 ml 450 ml # Bowel Movements 0 1 0 Result Diagram: 05/20/17 0536 05/20/17 0536 Imaging Last Impressions Chest X-Ray 05/18/17 1432 Signed Impressions: Service Date/Time: Thursday, May 18, 2017 14:58 - CONCLUSION: No evidence of acute cardiopulmonary disease. Tomasz Pink MD Objective Remarks GENERAL: sitting up eating breakfast, NC in place SKIN: Warm and dry. HEAD: Normocephalic. EYES: No scleral icterus. No injection or drainage. NECK: Supple, trachea midline. No JVD or lymphadenopathy. CARDIOVASCULAR: Regular rate and rhythm without murmurs RESPIRATORY: Breath sounds equal bilaterally. No accessory muscle use. no wheezes GASTROINTESTINAL: Abdomen soft, non-tender, nondistended. MUSCULOSKELETAL: No edema. Able to walk from bedside commode to bed A/P Problem List: (1) Acute exacerbation of CHF (congestive heart failure) ICD Code: I50.9 - Heart failure, unspecified Status: Acute (2) Acute dyspnea ICD Code: R06.00 - Dyspnea, unspecified Status: Acute (3) Elevated troponin ICD Code: R74.8 - Abnormal levels of other serum enzymes Status: Acute (4) CKD (chronic kidney disease) ICD Code: N18.9 - Chronic kidney disease Status: Chronic (5) CAD (coronary artery disease) ICD Code: I25.10 - CAD (coronary artery disease) Status: Chronic (6) Atrial fibrillation ICD Code: I48.91 - Atrial fibrillation Status: Chronic (7) Hypertension ICD Code: I10 - Hypertension Status: Chronic Assessment and Plan In summary, this is an 86 yo female who presented to the ED for CP and SOB after missing several doses of her lasix. Currently being treated for CHF exacerbation and ACS rule out. Acute exacerbation of CHF CHF, diastolic dysfunction- last ECHO in the inpatient setting 2014, EF 50-55%. repeat ECHO 05/19/17 showed EF 50-55% - missed a couple of her doses of Lasix from home - Chest x-ray showed no evidence of acute cardiopulmonary disease - BNP 372 - Will switch IV lasix to po lasix 40mg po daily. continue spironolactone - Fluid restriction, 1500 ML's fluids daily, low sodium diet - Consult cardiology pending, patient is known to Dr. Mendoza. Awaiting his recommendations. - have pacemaker interrogated Patient complaints of chest pressure, rule out ACS - Trop 0.06, 0.07, 0.07 - CELSO therapy, on ASA/plavix Acute Kidney Injury, on chronic kidney disease - Baseline 1.2 - 1.5, slightly elevated at 1.72 but stable. - Avoid nephrotoxins - Will not give fluid hydration secondary to worsening CHF - Monitor renal indices Atrial fibrillation, chronic - Hx of GI bleed secondary to Xarelto and Eliquis use - Continue Plavix and aspirin HTN- stable. home meds resumed. added clonidine/hydralazine prn BP >160/90 HLD-home med resumed CABG x5 Hx PPM - SSS - Continue home meds isosorbide, spironolactone - Monitor BP trend Insomnia- on home meds Back pain- motrin Discharge Planning awaiting recs from Dr. Mendoza. Pt to be evaluated today Problem Qualifiers (1) Acute exacerbation of CHF (congestive heart failure): Qualified Codes: I50.9 - Heart failure, unspecified Cookie Britton MD May 20, 2017 07:56
[2017-05-20] MEDS ORDERED: FUROSEMIDE 40 MG TAB PO SCH (09:00)
[2017-05-20] MEDS: SODIUM CHLORIDE 0.9% FLUSH 10 ML FLUSH IV FLUSH SCH (09:19)
[2017-05-20] MEDS: CLOPIDOGREL 75 MG TAB PO SCH (09:20)
[2017-05-20] MEDS: SPIRONOLACTONE 25 MG TAB PO SCH ×2 (09:20→17:00)
[2017-05-20] MEDS: ISOSORBIDE MONONITRATE 30 MG TAB PO SCH (09:20)
[2017-05-20] MEDS: DOCUSATE SODIUM 50 MG/SENNA 8.6 MG TAB PO SCH (09:20)
[2017-05-20] MEDS: ASPIRIN 81 MG CHEW TAB CHEW SCH (09:21)
--- NOTE | 2017-05-20 09:33 | MB ---
cc: LAYLA MENDOZA M.D.,JEAN LEMOS,DESIREE BRIDGES DATE OF CONSULTATION: 05/19/2017 DATE OF : 1930 REASON FOR CONSULTATION Asked to evaluate patient with chronic atrial fibrillation, chest pain and shortness of breath. HISTORY OF PRESENT ILLNESS Sofy Harmon is a very pleasant 86-year-old woman with past medical history significant for coronary artery disease, status post CABG x5, chronic atrial fibrillation, hypertension, hyperlipidemia and chronic renal insufficiency. She was in [place] for the burial of her brother. While in [place] she noted retrosternal chest discomfort, tightness and progressive shortness of breath. She returned later this week with persistent chest discomfort. Over the next several days she continued to have chest discomfort described as a tightness and progressive shortness of breath. Due to her progressive worsening symptoms she sought emergency room evaluation. MEDICATIONS Medications prior to admission: 1. Aspirin 81 mg daily. 2. Plavix 75 mg daily. 3. Spironolactone 25 mg daily. 4. Atorvastatin 20 mg daily. 5. Lasix 20 mg b.i.d. 6. Imdur 20 mg b.i.d. 7. Lunesta 5 mg daily. ALLERGIES 1. SULFA. 2. PENICILLIN. PAST MEDICAL HISTORY 1. As above. 2. Congestive heart failure. 3. Coronary artery disease. 4. Chronic renal insufficiency, stage III. 5. Status post lacunar CVA. 6. Hypertension. 7. Hyperlipidemia. 8. Chronic atrial fibrillation. 9. History of GI bleed x2; previously on Eliquis and Xarelto. 10.Diverticulitis. 11.Status post pacemaker for sick sinus syndrome. PAST SURGICAL HISTORY 1. As above. 2. Status post CABG x5. 3. Cataract. 4. Tonsillectomy. 5. Hysterectomy. SOCIAL HISTORY She does not smoke or drink alcohol. REVIEW OF SYSTEMS As above. 12-point review of systems reviewed and noted. No recent fever, chills, cough or sputum production. No recent gastrointestinal, genitourinary or neurologic symptoms. PHYSICAL EXAMINATION VITAL SIGNS: Pulse 73, respirations 20, blood pressure 148/71. Room air 94%. HEENT: Anicteric. PERRLA. No xanthelasma. NECK: No JVD. No carotid bruits. LUNGS: Bibasilar crackles. HEART: Irregular rate and rhythm. 2/6 systolic murmur left lower sternal border. ABDOMEN: Soft and nontender. EXTREMITIES: No peripheral edema. ECG Atrial fibrillation, diffuse nonspecific ST-segment abnormalities, demand ventricular pacing. LABORATORY WBC 5.5, hemoglobin 11.0, hematocrit 34.6, platelet count 227,000. Sodium 147, potassium 4.1, BUN 26, creatinine 1.68, calcium 8.9. Troponin 0.06, 0.07, 0.07. IMPRESSION 1. Chest pain syndrome suggestive of unstable angina, troponin is borderline positive for acute coronary syndrome. 2. Pulmonary congestion, mild congestive heart failure, improved after diuresis. 3. Chronic atrial fibrillation, ventricular rate controlled. 4. Status post pacemaker, normal function. 5. Hypertension, controlled. 6. Hyperlipidemia. PLAN 1. Continue IV Lasix diuresis as systolic blood pressure and creatinine tolerates. 2. Nitroglycerin paste one inch q.6h. 3. Review echocardiogram. 4. NPO after midnight; may have cardiac catheterization by Dr. Mendoza in a.m. Thank you for allowing me to contribute to the patient's care. Thank you for this consultation. MD HOLLY Young/REY /7:34 PM /9:59 AM
[2017-05-20] MEDS ORDERED: FURO40TA PO (17:21)
--- NOTE | 2017-05-20 17:28 | HHI.DS ---
Discharge Summary Admission Date May 18, 2017 at 16:17 Discharge Date: May 20, 2017 Admitting Diagnosis Chest Pain/Elevated Troponin (1) Acute exacerbation of CHF (congestive heart failure) ICD Code: I50.9 - Heart failure, unspecified Status: Acute (2) Acute dyspnea ICD Code: R06.00 - Dyspnea, unspecified Status: Acute (3) Elevated troponin ICD Code: R74.8 - Abnormal levels of other serum enzymes Status: Acute (4) CKD (chronic kidney disease) ICD Code: N18.9 - Chronic kidney disease Status: Chronic (5) CAD (coronary artery disease) ICD Code: I25.10 - CAD (coronary artery disease) Status: Chronic (6) Atrial fibrillation ICD Code: I48.91 - Atrial fibrillation Status: Chronic (7) Hypertension ICD Code: I10 - Hypertension Status: Chronic Procedures none Brief History - From Admission Written by Kyle Delgado, acting as scribe for Dr. Britton on 05/18/17 at 17:49. Patient is an 86-year-old female with primary medical history of CHF, CAD, CKD3 , arthritis, HTN, HLD, A. fib with GI bleed who came into the hospital for complaints of pressure in the chest, shortness of breath worsening. Patient states that in the past few days she has been having some shortness of breath, and also some dry cough. States that her brother just and she went to [place] for the and she was in the car for about 4 days. Reports that she had missed maybe 2 days of her Lasix medication because she was trying not to have to use the restroom often, but also states that right before going to [place], patient already had some shortness of breath and some chest pressure. Denies any anginal pain. Patient complains of right shoulder pain, attributes to arthritis but states it just started when she came to the hospital. Denies orthopnea. Denies any palpitations, headaches, dizziness. Denies any fevers, chills, nausea, vomiting, diarrhea. CBC/BMP: 05/20/17 0536 05/20/17 0536 Significant Findings Laboratory Tests Test 05/18/17 14:42 05/18/17 19:50 05/19/17 01:27 05/20/17 05:36 Hemoglobin 11.0 GM/DL (11.6-15.3) 10.7 GM/DL (11.6-15.3) 11.1 GM/DL (11.6-15.3) Hematocrit 34.6 % (35.0-46.0) 34.4 % (35.0-46.0) 34.7 % (35.0-46.0) Mean Corpuscular Volume 74.5 FL (80.0-100.0) 74.7 FL (80.0-100.0) 74.0 FL (80.0-100.0) Mean Corpuscular Hemoglobin 23.6 PG (27.0-34.0) 23.3 PG (27.0-34.0) 23.6 PG (27.0-34.0) Mean Corpuscular Hemoglobin Concent 31.7 % (32.0-36.0) 31.2 % (32.0-36.0) 31.9 % (32.0-36.0) Red Cell Distribution Width 19.1 % (11.6-17.2) 19.3 % (11.6-17.2) 18.6 % (11.6-17.2) Neutrophils (%) (Auto) 70.9 % (16.0-70.0) 76.7 % (16.0-70.0) Monocytes (%) (Auto) 10.5 % (0.0-8.0) 9.2 % (0.0-8.0) 13.3 % (0.0-8.0) Eosinophils (%) (Auto) 4.4 % (0.0-4.0) 4.9 % (0.0-4.0) 7.5 % (0.0-4.0) Lymphocytes # (Auto) 0.7 TH/MM3 (1.0-4.8) 0.6 TH/MM3 (1.0-4.8) 0.6 TH/MM3 (1.0-4.8) Prothrombin Time 12.0 SEC (9.8-11.6) Blood Urea Nitrogen 26 MG/DL (7-18) 25 MG/DL (7-18) 26 MG/DL (7-18) Creatinine 1.68 MG/DL (0.50-1.00) 1.72 MG/DL (0.50-1.00) 1.72 MG/DL (0.50-1.00) Total Bilirubin 1.4 MG/DL (0.2-1.0) Estimat Glomerular Filtration Rate 29 ML/MIN (>89) 28 ML/MIN (>89) 28 ML/MIN (>89) Total Creatine Kinase 234 U/L (26-192) 197 U/L (26-192) 197 U/L (26-192) Creatine Kinase MB 7.4 NG/ML (0.5-3.6) 5.5 NG/ML (0.5-3.6) 6.3 NG/ML (0.5-3.6) Troponin I 0.06 NG/ML (0.02-0.05) 0.07 NG/ML (0.02-0.05) 0.07 NG/ML (0.02-0.05) B-Type Natriuretic Peptide 372 PG/ML (0-100) Lymphocytes (%) (Auto) 8.6 % (9.0-44.0) Random Glucose 112 MG/DL (74-106) Imaging Last Impressions Chest X-Ray 05/18/17 1432 Signed Impressions: Service Date/Time: Thursday, May 18, 2017 14:58 - CONCLUSION: No evidence of acute cardiopulmonary disease. Tomasz Pink MD PE at Discharge GENERAL: sitting up eating breakfast, NC in place SKIN: Warm and dry. HEAD: Normocephalic. EYES: No scleral icterus. No injection or drainage. NECK: Supple, trachea midline. No JVD or lymphadenopathy. CARDIOVASCULAR: Regular rate and rhythm without murmurs RESPIRATORY: Breath sounds equal bilaterally. No accessory muscle use. no wheezes GASTROINTESTINAL: Abdomen soft, non-tender, nondistended. MUSCULOSKELETAL: No edema. Able to walk from bedside commode to bed Hospital Course Acute exacerbation of CHF/chest pains CHF, diastolic dysfunction- last ECHO in the inpatient setting 2014, EF 50-55%. repeat ECHO 05/19/17 showed EF 50-55% - missed a couple of her doses of Lasix from home. Chest xray didn't show fluid overload however pt responded well to IV lasix. Will d/c her on 40mg po daily. Continue w fluid restrictions 1500ml/day and low sodium diet. Pt evaluated by Dr. Schmitt today and RN notified me that she was cleared for discharged w f/u in their office on saturday or of this week. monitor Cr levels as an outpatient as lasix dose increased. Last Cr today was 1.72 (pt w hx of CKD). BMP in 2-3 days w results to Dr. Mendoza's office. Avoid nephrotoxic agents. Pt Condition on Discharge: Stable Discharge Disposition: Discharge Home Discharge Time: > 30 minutes Discharge Instructions DIET: Follow Instructions for: Heart Healthy Diet Fluid Restrictions: 1500 Activities you can perform: Regular-No Restrictions Follow up Referrals: Cardiology - 05/22/17 PCP Follow-up - 1 Week New Orders: BASIC METABOLIC PROF - 2-3 Days New Medications: Furosemide (Furosemide) 40 Mg Tab 40 MG PO DAILY, #30 TAB Continued Medications: Aspirin (Aspirin) 81 Mg Chew 81 MG CHEW DAILY, TAB 0 Refills Atorvastatin (Atorvastatin) 20 Mg Tab 20 MG PO HS for Cholesterol Management, #30 TAB 0 Refills Clopidogrel (Plavix) 75 Mg Tab 75 MG PO DAILY for Blood Clot Prevention, #30 TAB 0 Refills Eszopiclone (Lunesta) 2 Mg Tab 3 MG PO HS PRN for INSOMNIA, TAB 0 Refills Isosorbide Mononitrate (Isosorbide Mononitrate) 20 Mg Tab 30 MG PO DAILY for Prevent Chest Pain, #60 TAB 0 Refills Take 2 doses 7 hours apart. Spironolactone (Spironolactone) 25 Mg Tab 25 MG PO BIDPC, #60 TAB 0 Refills Discontinued Medications: Furosemide (Furosemide) 20 Mg Tab 20 MG PO BID, #60 TAB 0 Refills Cookie Britton MD May 20, 2017 17:28
--- NOTE | 2017-05-20 17:56 | PD.CARD.PN ---
Subjective Subjective Remarks No angina, SOB, or palpitations. Cough improving. Wants to go home. Does not want cardiac cath. Objective Medications Current Medications Medications (Trade) Dose Ordered Sig/Little Route Start Time Stop Time Status Last Admin (NS Flush) 2 ml UNSCH PRN IV FLUSH 05/18/17 16:30 (NS Flush) 2 ml BID IV FLUSH 05/18/17 21:00 05/20/17 09:19 (Zofran Inj) 4 mg Q6H PRN IVP 05/18/17 16:30 (Narcan Inj) 0.4 mg UNSCH PRN IV PUSH 05/18/17 16:30 (Candie-Colace) 1 tab BID PO 05/18/17 21:00 05/20/17 09:20 (Milk Of Magnesia Liq) 30 ml Q12H PRN PO 05/18/17 16:30 (Senokot) 17.2 mg Q12H PRN PO 05/18/17 16:30 (Dulcolax Supp) 10 mg DAILY PRN RECTAL 05/18/17 16:30 (Lactulose Liq) 30 ml DAILY PRN PO 05/18/17 16:30 (Aspirin Chew) 81 mg DAILY CHEW 05/19/17 09:00 05/20/17 09:21 (Lipitor) 20 mg HS PO 05/18/17 21:00 05/19/17 20:39 (Plavix) 75 mg DAILY PO 05/18/17 18:30 05/20/17 09:20 (Imdur) 30 mg DAILY PO 05/19/17 09:00 05/20/17 09:20 (Aldactone) 25 mg BIDPC PO 05/19/17 09:00 05/20/17 17:00 (Nitrostat Sl) 0.3 mg Q5M PRN SL 05/18/17 18:30 (Catapres) 0.1 mg Q6H PRN PO 05/18/17 21:30 05/19/17 05:15 (Apresoline) 10 mg Q6HR PRN PO 05/18/17 21:30 (Lunesta) 3 mg HS PRN PO 05/19/17 21:00 05/19/17 20:39 (Lasix) 40 mg DAILY PO 05/20/17 09:00 05/20/17 09:20 Vital Signs / I&O Vital Signs Date Time Temp Pulse Resp B/P (MAP) Pulse Ox O2 Delivery O2 Flow Rate FiO2 05/20/17 16:00 70 05/20/17 15:03 97.5 67 16 128/65 (86) 93 05/20/17 15:03 93 Room Air 05/20/17 15:00 76 05/20/17 14:00 76 05/20/17 13:00 69 05/20/17 12:30 97 Room Air 05/20/17 12:30 98.6 68 16 137/63 (87) 97 05/20/17 11:00 98.2 60 16 132/67 (88) 95 05/20/17 11:00 60 05/20/17 11:00 95 Nasal Cannula 1.00 05/20/17 07:00 98.1 64 16 149/65 (93) 97 05/20/17 07:00 97 Nasal Cannula 3.00 05/20/17 07:00 64 05/20/17 04:00 58 16 139/65 (89) 94 05/20/17 04:00 58 05/20/17 04:00 94 Nasal Cannula 4.00 05/20/17 00:00 96 Nasal Cannula 4.00 05/20/17 00:00 60 18 145/76 (99) 96 05/20/17 00:00 84 05/19/17 20:00 97 Nasal Cannula 4.00 05/19/17 20:00 84 05/19/17 20:00 97.7 89 18 148/84 (105) 97 I/O 05/19/17 05/19/17 05/19/17 05/20/17 05/20/17 05/20/17 07:00 15:00 23:00 07:00 15:00 23:00 Intake Total 240 ml 480 ml 480 ml Output Total 1150 ml 1150 ml 450 ml Balance -910 ml -670 ml 30 ml Intake Oral 240 ml 480 ml 480 ml Output Urine Total 1150 ml 1150 ml 450 ml # Bowel Movements 0 1 0 Physical Exam GENERAL: In NAD SKIN: Warm and dry. HEAD: Normocephalic. EYES: No scleral icterus. No injection or drainage. NECK: Supple, trachea midline. No JVD or lymphadenopathy. CARDIOVASCULAR: Regular rate and rhythm without murmurs, gallops, or rubs. RESPIRATORY: Breath sounds equal bilaterally. No accessory muscle use. GASTROINTESTINAL: Abdomen soft, non-tender, nondistended. MUSCULOSKELETAL: No cyanosis, or edema. Laboratory Laboratory Tests Test 05/20/17 05:36 White Blood Count 5.0 TH/MM3 Red Blood Count 4.69 MIL/MM3 Hemoglobin 11.1 GM/DL Hematocrit 34.7 % Mean Corpuscular Volume 74.0 FL Mean Corpuscular Hemoglobin 23.6 PG Mean Corpuscular Hemoglobin Concent 31.9 % Red Cell Distribution Width 18.6 % Platelet Count 235 TH/MM3 Mean Platelet Volume 7.4 FL Neutrophils (%) (Auto) 66.4 % Lymphocytes (%) (Auto) 11.8 % Monocytes (%) (Auto) 13.3 % Eosinophils (%) (Auto) 7.5 % Basophils (%) (Auto) 1.0 % Neutrophils # (Auto) 3.3 TH/MM3 Lymphocytes # (Auto) 0.6 TH/MM3 Monocytes # (Auto) 0.7 TH/MM3 Eosinophils # (Auto) 0.4 TH/MM3 Basophils # (Auto) 0.1 TH/MM3 CBC Comment DIFF FINAL Differential Comment Blood Urea Nitrogen 26 MG/DL Creatinine 1.72 MG/DL Random Glucose 100 MG/DL Calcium Level 8.8 MG/DL Sodium Level 137 MEQ/L Potassium Level 3.7 MEQ/L Chloride Level 102 MEQ/L Carbon Dioxide Level 25.0 MEQ/L Anion Gap 10 MEQ/L Estimat Glomerular Filtration Rate 28 ML/MIN Assessment and Plan Problem List: (1) Acute exacerbation of CHF (congestive heart failure) ICD Codes: I50.9 - Heart failure, unspecified Status: Acute (2) CKD (chronic kidney disease) ICD Codes: N18.9 - Chronic kidney disease Status: Chronic (3) CAD (coronary artery disease) ICD Codes: I25.10 - CAD (coronary artery disease) Status: Chronic (4) HTN (hypertension) ICD Codes: I10 - HTN (hypertension) Status: Acute (5) Atrial fibrillation ICD Codes: I48.91 - Atrial fibrillation Status: Chronic (6) Pacemaker ICD Codes: Z95.0 - Presence of cardiac pacemaker Assessment and Plan Much improved with diuresis. CHF exacerbation due to diet and medication noncompliance. Continue current program including diuretics. No evidence of ACS , mild troponin abnormality related to renal insufficiency. Renal fx remains stable. DC home. Will schedule f/u w Dr. Mendoza later this week as outpatient. Problem Qualifiers (1) Acute exacerbation of CHF (congestive heart failure): Qualified Codes: I50.9 - Heart failure, unspecified (2) CKD (chronic kidney disease): Qualified Codes: N18.9 - Chronic kidney disease, unspecified Maegan Schmitt MD May 20, 2017 17:56
== END 2017-05-20 18:25 | disposition home or self-care (01) | DRG 291 ==
LOC: NEPC 14:05 → NEDA 16:17 → HCVI 17:30 → HCPC 05-20 12:35
PROVIDERS: ADMIT Hospitalist; ATTEND Hospitalist
DX: I13.0 Hypertensive heart and chronic kidney disease with heart failure and stage 1 through stage 4 chronic kidney disease, or unspecified chronic kidney disease (principal); I50.33 Acute on chronic diastolic (congestive) heart failure; N17.9 Acute kidney failure, unspecified; I48.2 Chronic atrial fibrillation; I49.5 Sick sinus syndrome; I25.110 Atherosclerotic heart disease of native coronary artery with unstable angina pectoris; N18.3 Chronic kidney disease, stage 3 (moderate); I25.2 Old myocardial infarction; D50.9 Iron deficiency anemia, unspecified; E78.5 Hyperlipidemia, unspecified; G47.00 Insomnia, unspecified; T50.1X6A Underdosing of loop [high-ceiling] diuretics, initial encounter; M54.9 Dorsalgia, unspecified; M19.90 Unspecified osteoarthritis, unspecified site; F32.9 Major depressive disorder, single episode, unspecified; F41.9 Anxiety disorder, unspecified; Z66 Do not resuscitate; Z79.1 Long term (current) use of non-steroidal anti-inflammatories (NSAID); Z86.73 Personal history of transient ischemic attack (TIA), and cerebral infarction without residual deficits; Z88.0 Allergy status to penicillin; Z88.2 Allergy status to sulfonamides; Z91.128 Patient's intentional underdosing of medication regimen for other reason; Z95.0 Presence of cardiac pacemaker; Z95.1 Presence of aortocoronary bypass graft
CPT/HCPCS: 71010; 80048; 80053; 82550; 82552; 83735; 83880; 84484; 85025; 85610; 85730; 93005; 93306; 96374; 96375; J1940

== ENCOUNTER 2017-07-30 12:13 | Inpatient (IN) | payer MEDICARE ==
[~2017-07-30] VITALS: Ht 152.4 cm; Wt 73.2 kg
[2017-07-30] VITALS (11 sets, daily range): BP systolic 143–185; BP diastolic 73–92; PULSE 62–75; RESP 16–20; TEMP 96–97.9; O2SAT 92–96
[~2017-07-30 12:13] MED LIST changes: -AMLO5 PO; -APIX2.5T PO; +ASPI-516 CHEW; -ASPI81TA82 PO; -ATOR20TA PO; +ATOR20TA15 PO; -CLOP75 PO; -CYAN25003 PO; +ESZO2 PO; -ESZO3 PO; -FURO1TAB93 PO; +FURO40TA PO; +ISOS20TA PO; -ISOS30 PO; -LISI5 PO; -METO25 PO; -MIRA33502 PO; -NITR.3 SL; +PLAV75TA29 PO; -ZOFR4TAB3 SL
[2017-07-30] MEDS ORDERED: SODIUM CHLORIDE 0.9% FLUSH 10 ML FLUSH IVF PRN (12:30)
--- NOTE | 2017-07-30 12:49 | PD ---
HPI Chief Complaint: Abdominal Pain Time Seen by Provider: 12:24 Travel History International Travel<30 days: No Contact w/Intl Traveler<30days: No Traveled to known affect area: No History of Present Illness HPI 86-year-old female presents with difficulty breathing and lower abdominal pain over the past couple weeks. She states it has gotten progressively worse. She states a couple weeks ago she had a CAT scan that was normal that did not even show her diverticulitis. She states she also has history of heart failure and does not know if that is related. She states that she hasn't had any congestion , fever, other concurrent complaints. She states she has been having normal bowel movements with her MiraLAX that she takes regularly. She feels worse when she moves around. She denies other modifying factors. Her daughter is with her and helps supplement history. PFSH Past Medical History Hx Anticoagulant Therapy: Yes (PLAVIX) Arthritis: Yes Asthma: No Blood Disorders: No Anxiety: Yes Depression: Yes Heart Rhythm Problems: Yes (Afib) Cancer: Yes (colon) Cardiac Catheterization: Yes Cardiovascular Problems: Yes (PACER, BYPASS, NM, HTN, CHOL) High Cholesterol: Yes Chemotherapy: No Chest Pain: Yes Congestive Heart Failure: Yes COPD: No Cerebrovascular Accident: No Diabetes: No Diminished Hearing: No Diverticulitis: Yes Endocrine: No Gastrointestinal Disorders: Yes (GALLSTONES ) GERD: No Glaucoma: No Genitourinary: No Headaches: Yes Hiatal Hernia: No Hypertension: Yes Immune Disorder: No Musculoskeletal: Yes Neurologic: No Psychiatric: No Reproductive: No Respiratory: No Immunizations Current: No Migraines: No Myocardial Infarction: Yes (X 1) Radiation Therapy: No Seizures: No Sleep Apnea: No Ulcer: No ?: Not Menopausal: Yes : 3 Para: 2 Miscarriage: 1 Tubal Ligation: Yes Past Surgical History Abdominal Surgery: No AICD: No Appendectomy: No Arteriovenous Shunt: No Cardiac Surgery: Yes (PACEMAKER - FEB 2015) Coronary Artery Bypass Graft: Yes (5 VESSEL 2001) Ear Surgery: No Endocrine Surgery: No Eye Surgery: Yes (CATARACT REMOVAL TO FLORENCIA EYES) Genitourinary Surgery: Yes Gynecologic Surgery: Yes Hysterectomy: Yes Insulin Pump: No Joint Replacement: No Oral Surgery: No Pacemaker: Yes Thoracic Surgery: No Tonsillectomy: Yes Other Surgery: Yes Social History Alcohol Use: No Tobacco Use: No Substance Use: No Allergies-Medications (Allergen,Severity, Reaction): Coded Allergies: Sulfa (Sulfonamide Antibiotics) (Unverified Allergy, Unknown, UNKNOWN, ) penicillin G (Unverified Allergy, Unknown, [place], 07/30/17) Reported Meds & Prescriptions Reported Meds & Active Scripts Active Furosemide 40 Mg Tab 40 Mg PO DAILY Reported Aspirin 81 Mg Chew 81 Mg CHEW DAILY Plavix (Clopidogrel Bisulfate) 75 Mg Tab 75 Mg PO DAILY Spironolactone 25 Mg Tab 25 Mg PO BIDPC Atorvastatin (Atorvastatin Calcium) 20 Mg Tab 20 Mg PO HS Isosorbide Mononitrate 20 Mg Tab 30 Mg PO DAILY Take 2 doses 7 hours apart. Lunesta (Eszopiclone) 2 Mg Tab 3 Mg PO HS PRN Review of Systems Except as stated in HPI: all other systems reviewed are Neg Physical Exam Narrative GENERAL: Well-nourished, well-developed patient. SKIN: Warm and dry. HEAD: Normocephalic and atraumatic. EYES: No injection or drainage. ENT: No nasal drainage noted. NECK: Supple, trachea midline. CARDIOVASCULAR: Regular rate and rhythm RESPIRATORY: Breath sounds equal bilaterally. No accessory muscle use. GASTROINTESTINAL: Abdomen soft, ttp in left mid and lower abdomen, nondistended. no rebound EXTREMITIES: No significant edema. NEUROLOGICAL: Awake. moves all extremities and sensory grossly within normal limits. Normal speech. Data Data Last Documented VS Vital Signs Date Time Temp Pulse Resp B/P (MAP) Pulse Ox O2 Delivery O2 Flow Rate FiO2 07/30/17 14:00 62 16 185/92 (123) 94 Room Air 07/30/17 13:15 97.9 Orders Orders Complete Blood Count With Diff (07/30/17 12:28) Comprehensive Metabolic Panel (07/30/17 12:28) B-Type Natriuretic Peptide (07/30/17 12:28) Act Partial Throm Time (Ptt) (07/30/17 12:28) Prothrombin Time / Inr (Pt) (07/30/17 12:28) Magnesium (Mg) (07/30/17 12:28) Ckmb (Isoenzyme) Profile (07/30/17 12:28) Troponin I (07/30/17 12:28) Urinalysis - C+S If Indicated (07/30/17 12:28) Iv Access Insert/Monitor (07/30/17 12:28) Electrocardiogram (07/30/17 12:28) Ecg Monitoring (07/30/17 12:28) Oximetry (07/30/17 12:28) Chest, Pa & Lat (07/30/17 12:28) Sodium Chloride 0.9% Flush (Ns Flush) (07/30/17 12:30) Lipase (07/30/17 12:28) Ct Abd/Pel W Iv Contrast(Rout) (07/30/17 ) CKMB (07/30/17 12:50) CKMB% (07/30/17 12:50) Furosemide Inj (Lasix Inj) (07/30/17 14:15) Iodixanol 320 Inj (Rad Ct) (Visipaque 32 (07/30/17 14:26) Aspirin (Aspirin) (07/30/17 15:00) Labs Laboratory Tests Test 07/30/17 12:50 07/30/17 13:10 White Blood Count 5.8 TH/MM3 Red Blood Count 4.94 MIL/MM3 Hemoglobin 10.6 GM/DL Hematocrit 35.2 % Mean Corpuscular Volume 71.2 FL Mean Corpuscular Hemoglobin 21.5 PG Mean Corpuscular Hemoglobin Concent 30.1 % Red Cell Distribution Width 17.7 % Platelet Count 263 TH/MM3 Mean Platelet Volume 8.0 FL Neutrophils (%) (Auto) 66.9 % Lymphocytes (%) (Auto) 14.1 % Monocytes (%) (Auto) 11.9 % Eosinophils (%) (Auto) 6.5 % Basophils (%) (Auto) 0.6 % Neutrophils # (Auto) 3.9 TH/MM3 Lymphocytes # (Auto) 0.8 TH/MM3 Monocytes # (Auto) 0.7 TH/MM3 Eosinophils # (Auto) 0.4 TH/MM3 Basophils # (Auto) 0.0 TH/MM3 CBC Comment AUTO DIFF Differential Comment AUTO DIFF CONFIRMED Platelet Estimate NORMAL Platelet Morphology Comment NORMAL Ovalocytes 1+ Rouleau PRESENT Prothrombin Time 12.4 SEC Prothromb Time International Ratio 1.2 RATIO Activated Partial Thromboplast Time 29.3 SEC Blood Urea Nitrogen 24 MG/DL Creatinine 1.50 MG/DL Random Glucose 101 MG/DL Total Protein 6.6 GM/DL Albumin 3.4 GM/DL Calcium Level 8.8 MG/DL Magnesium Level 2.2 MG/DL Alkaline Phosphatase 115 U/L Aspartate Amino Transf (AST/SGOT) 31 U/L Alanine Aminotransferase (ALT/SGPT) 21 U/L Total Bilirubin 1.5 MG/DL Sodium Level 138 MEQ/L Potassium Level 4.2 MEQ/L Chloride Level 106 MEQ/L Carbon Dioxide Level 21.8 MEQ/L Anion Gap 10 MEQ/L Estimat Glomerular Filtration Rate 33 ML/MIN Total Creatine Kinase 244 U/L Creatine Kinase MB 11.0 NG/ML Creatine Kinase MB % 4.5 % Troponin I 0.06 NG/ML B-Type Natriuretic Peptide 802 PG/ML Lipase 360 U/L Urine Collection Type cc Urine Color y Urine Turbidity c Urine pH 5.5 Urine Specific Honor 1.016 Urine Protein 30 mg/dL Urine Glucose (UA) NEG mg/dL Urine Ketones TRACE mg/dL Urine Occult Blood NEG Urine Nitrite NEG Urine Bilirubin NEG Urine Leukocyte Esterase TRACE Urine RBC 0-3 /hpf Urine WBC 0-2 /hpf Urine Squamous Epithelial Cells 0-5 /hpf Microscopic Urinalysis Comment CULT NOT INDICATED MDM Medical Decision Making Medical Screen Exam Complete: Yes Emergency Medical Condition: Yes Medical Record Reviewed: Yes (pmh confirmed) Interpretation(s) EKG appears to be irregular with pacer spikes, without STEMI criteria CBC & BMP Diagram 07/30/17 12:50 Total Protein 6.6, Albumin 3.4, Calcium Level 8.8, Magnesium Level 2.2, Alkaline Phosphatase 115, Aspartate Amino Transf (AST/SGOT) 31, Alanine Aminotransferase (ALT/SGPT) 21, Total Bilirubin 1.5 H Last 24 hours Impressions Chest X-Ray 07/30/17 1228 Signed Impressions: Service Date/Time: Sunday, July 30, 2017 12:35 - CONCLUSION: 1. Cardiomegaly with no definite pulmonary edema. 2. Status post median sternotomy. Babar Lyons MD Differential Diagnosis CHF, diverticulitis, URI, gastritis Narrative Course Will check blood work, chest x-ray, CT scan abdominal pelvis and reevaluate Lab work shows mildly elevated cardiac markers similar to prior visit. Discussed with patient whether she would consider cardiac catheterization and she's preferring to stay here. We'll discuss with her data analysis intern Patient updated and agrees to admission Physician Communication Physician Communication dr joe states can stay here and trend troponins, consult if needed sounds like chf exacerbation dr mcgregor agrees to observation Diagnosis Primary Impression: Acute exacerbation of CHF (congestive heart failure) Qualified Codes: I50.9 - Heart failure, unspecified Additional Impression: Abdominal pain Qualified Codes: R10.9 - Unspecified abdominal pain Admitting Information Admitting Physician Requests: Observation Goldie Francois MD Jul 30, 2017 12:48
[2017-07-30 12:56] LABS: AUTOMATED NEUTROPHIL # 3.9 TH/MM3 (1.8-7.7); BASOPHIL % 0.6 % (0.0-2.0); EOSINOPHIL # 0.4 TH/MM3 (0-0.4); EOSINOPHIL % 6.5 % (0.0-4.0); HEMATOCRIT 35.2 % (35.0-46.0); HEMOGLOBIN 10.6 GM/DL (11.6-15.3); LYMPH % 14.1 % (9.0-44.0); LYMPHOCYTE # 0.8 TH/MM3 (1.0-4.8); MEAN CELL VOLUME 71.2 FL (80.0-100.0); MEAN CORPUSCULAR HEMOGLOBIN 21.5 PG (27.0-34.0); MEAN CORPUSCULAR HGB CONC 30.1 % (32.0-36.0); MONO % 11.9 % (0.0-8.0); MONOCYTE # 0.7 TH/MM3 (0-0.9); NEUT % 66.9 % (16.0-70.0); PLATELET COUNT 263 TH/MM3 (150-450); RED BLOOD COUNT 4.94 MIL/MM3 (4.00-5.30); RED CELL DISTRIBUTION WIDTH 17.7 % (11.6-17.2); WHITE BLOOD COUNT 5.8 TH/MM3 (4.0-11.0)
--- NOTE | 2017-07-30 13:00 | RADRPT ---
EXAM DATE/TIME: 07/30/2017 12:35 [facility] COMPARISON: CHEST SINGLE AP, May 18, 2017, 14:58. CHEST PA & LAT, March 17, 2015, 16:14. INDICATIONS : Short of breath. MEDICAL HISTORY : Myocardial infarction. Cardiovascular disease. SURGICAL HISTORY : CABG. Pacemaker. ENCOUNTER: Initial ACUITY: 3 days PAIN SCORE: 2/10 LOCATION: Bilateral chest FINDINGS: PA and lateral views the chest were obtained and again demonstrate the patient status post median deyanira rnotomy for bypass grafting procedure. The heart size remains moderately enlarged with no new pulmona ry infiltrates or effusions. There is mild scarring. The left subclavian transvenous pacer remains in place. After scar calcifications are present in the aorta. The bony thorax is otherwise unremarkable . CONCLUSION: 1. Cardiomegaly with no definite pulmonary edema. 2. Status post median sternotomy. Babar Lynos MD on July 30, 2017 at 12:57 Board Certified Radiologist. This report was verified electronically.
[2017-07-30 13:07] LABS: INTERNATIONAL NORMALIZED RATIO 1.2 RATIO; PROTHROMBIN TIME - PATIENT 12.4 SEC (9.8-11.6)
[2017-07-30 13:27] LABS: BILIRUBIN, URINE NEG (NEG); BLOOD, URINE NEG (NEG); GLUCOSE,URINE NEG (NEG); KETONE, URINE TRACE mg/dL (NEG); NITRITE,URINE NEG (NEG); PH, URINE 5.5 (5.0-8.5); URINE LEUKOCYTE ESTERASE TRACE (NEG)
[2017-07-30 13:28] LABS: CHLORIDE 106 MEQ/L (98-107); SODIUM (NA) 138 MEQ/L (136-145)
[2017-07-30 13:28] LABS: URINE COLOR y (YELLW/STRAW)
[2017-07-30 13:32] LABS: RBC, URINE 0-3 /hpf (0-3); SQUAMOUS EPITHELIAL CELL URINE 0-5 /hpf (0-5); WBC, URINE 0-2 /hpf (0-5)
[2017-07-30 13:32] LABS: ALBUMIN 3.4 GM/DL (3.4-5.0); BICARBONATE 21.8 MEQ/L (21.0-32.0); BLOOD UREA NITROGEN 24 MG/DL (7-18); CALCIUM 8.8 MG/DL (8.5-10.1); GLUCOSE,RANDOM 101 MG/DL (74-106); LIPASE 360 U/L (73-393); MAGNESIUM 2.2 MG/DL (1.5-2.5)
[2017-07-30 13:35] LABS: ALT (GPT) 21 U/L (10-53); AST (GOT) 31 U/L (15-37); GLOMERULAR FILTRATION RATE 33 ML/MIN (>89)
[2017-07-30 13:36] LABS: TOTAL BILIRUBIN ADULT 1.5 MG/DL (0.2-1.0)
[2017-07-30 13:37] LABS: TOTAL PROTEIN 6.6 GM/DL (6.4-8.2)
[2017-07-30 13:38] LABS: ALKALINE PHOSPHATASE 115 U/L (45-117); OVALOCYTES 1+ (NORMAL); ROULEAUX PRESENT (NORMAL)
[2017-07-30 13:40] LABS: TROPONIN I 0.06 NG/ML (0.02-0.05)
[2017-07-30] MEDS ORDERED: FUROSEMIDE 40 MG/4 ML VIAL IV PUSH ONE (14:15)
[2017-07-30] MEDS ORDERED: IODIXANOL 320 MG/ML 10 ML VIAL (for Rad CT) IVCONTRAST ONE (14:26)
--- NOTE | 2017-07-30 14:46 | RADRPT ---
EXAM DATE/TIME: 07/30/2017 14:17 [facility] COMPARISON: CT ABDOMEN & PELVIS W/O CONTRAST, May 01, 2016, 15:43. CT ABDOMEN & PELVIS W CONTRAST, February, 5:02. EXTERNAL COMPARISON : [facility], INDICATIONS : Diffuse abdominal pain and short of breath. IV CONTRAST: 50 cc Visipaque (iodixanol) IV ORAL CONTRAST: No oral contrast ingested. RADIATION DOSE: 13.99 CTDIvol (mGy) MEDICAL HISTORY : Cardiovascular disease. Diverticulitis. Carcinoma, colon. Hypertension. SURGICAL HISTORY : Pacemaker. Tubal ligation.Hysterectomy. ENCOUNTER: Initial ACUITY: 4 - 6 months PAIN SCALE: 5/10 LOCATION: pelvis abdomen TECHNIQUE: Volumetric scanning of the abdomen and pelvis was performed. Using automated exposure control and ad justment of the mA and/or kV according to patient size, radiation dose was kept as low as reasonably achievable to obtain optimal diagnostic quality images. DICOM format image data is available electro nically for review and comparison. FINDINGS: LOWER LUNGS: There are small bilateral pleural effusions, left slightly larger than right. Right heart appears enl arged. Pacing wire is present within the right heart. LIVER: There is a partially exophytic low-density lesion in the right posterior liver measuring 2.7 cm with Hounsfield measurements consistent with a cyst. Scattered punctate calcifications are present through out the liver. The intrahepatic IVC and hepatic veins are distended and mild reflux of contrast into the hepatic veins. There is no dilation of the biliary tree. There are calcified stones in the gall bladder. There may be mild wall edema. SPLEEN: Normal size without lesion. There are innumerable punctate calcifications throughout the spleen. PANCREAS: Within normal limits. KIDNEYS: Normal in size and shape. There is no mass, stone or hydronephrosis. ADRENAL GLANDS: Within normal limits. VASCULAR: There is severe atherosclerotic disease. No aneurysm is present. BOWEL/MESENTERY: Moderate size hiatal hernia is present. Small bowel and colon demonstrate no acute abnormality. There is some moderate severity sigmoid diverticulosis. Small volume of free fluid is present within the a bdomen and pelvis. There is no free intraperitoneal air. ABDOMINAL WALL: Within normal limits. RETROPERITONEUM: There are retroperitoneal calcified lymph nodes in the abdomen. No concerning lymphadenopathy is iden tified. BLADDER: No wall thickening or mass. REPRODUCTIVE: Uterus is absent. INGUINAL: There is no lymphadenopathy. There is a stable fat containing right inguinal hernia. MUSCULOSKELETAL: There are degenerative changes of the spine but no acute osseous abnormalities visualized. CONCLUSION: 1. No specific acute finding is identified to explain the diffuse abdominal pain. There is a small vo lume of free fluid in the abdomen and pelvis from uncertain etiology. 2. Small bilateral pleural effusions, left larger than right. 3. Enlarged right heart with reflux of contrast into enlarged IVC and hepatic veins is suggestive of elevated right heart pressures or tricuspid regurgitation. 4. Nonacute findings include moderate size hiatal hernia, cholelithiasis, sigmoid diverticulosis, and moderate to severe atherosclerotic disease. There also stable findings indicative of old granulomato us infection. Tomasz Rutledge MD on July 30, 2017 at 14:33 Board Certified Radiologist. This report was verified electronically.
[2017-07-30] MEDS ORDERED: ASPIRIN 325 MG TAB PO ONE (15:00)
[2017-07-30] MEDS ORDERED: SODIUM CHLORIDE 0.9% FLUSH 10 ML FLUSH IV FLUSH PRN ×2 (15:30→16:15)
[2017-07-30] MEDS ORDERED: ALPRAZolam 0.25 MG TAB PO PRN (16:15)
[2017-07-30] MEDS ORDERED: ACETAMINOPHEN 325 MG TAB PO PRN (16:15)
[2017-07-30] MEDS ORDERED: CALCIUM CARBONATE 500 MG CHEWABLE TAB CHEW PRN (16:15)
[2017-07-30] MEDS ORDERED: ONDANSETRON HCL 4 MG/2 ML VIAL IV PUSH PRN (16:15)
[2017-07-30] MEDS ORDERED: DOCUSATE SODIUM 100 MG CAP PO PRN (16:15)
[2017-07-30] MEDS ORDERED: MAGNESIUM HYDROXIDE SUSP 30 ML CUP PO PRN (16:15)
--- NOTE | 2017-07-30 16:29 | HHI.HP ---
H[facility] Service [facility] Physician Piter Mendoza MD Admission Diagnosis chf exacerbation Diagnoses: (1) Non-ST elevation myocardial infarction (NSTEMI) Diagnosis: Principal (2) Abdominal pain Diagnosis: Principal (3) Elevated troponin Diagnosis: Principal (4) Chronic diastolic congestive heart failure Diagnosis: Principal (5) Chronic kidney disease, stage 3 Diagnosis: Secondary Chief Complaint: Shortness of breath, Travel History International Travel<30 Days: No Contact w/Intl Traveler <30 Da: No Traveled to Known Affected Are: No History of Present Illness 86-year-old female with known history of coronary artery disease, congestive heart failure, history myocardial infarction, coronary disease, chronic abdominal pain, obstipation, chronic kidney disease stage III, hyponatremia, atrial fibrillation who presented to the hospital secondary to shortness of breath and dyspnea. Patient states that over the last month she has been having worsening abdominal discomfort mainly located in the epigastric region. She has been trying to get an appointment with her assistant project engineer Dr. Chiang, however has been unsuccessful. Over last couple days she has been having worsening shortness of breath with episodes of waking up in the middle night gasping for air. Because her breathing did not improve she came to the emergency department for evaluation. Patient had workup done and was found to have elevated cardiac enzymes, CK-MB, troponin which is indicative of myocardial infarction. Is recommended by the ER physician that the patient be admitted to the hospital for further management. ER documentation indicates that the ER physician discussed with construction estimator who indicated medical management at this time. I did discuss with the patient that if she needed to have cardiac catheterization she is open for at this time. However DNR status was acquired and patient does not want to be resuscitated. Patient will remain in the hospital, cardiac consultation were requested. . Review of Systems Cardiovascular: COMPLAINS OF: PND Gastrointestinal: COMPLAINS OF: Abdominal pain Except as stated in HPI: all other systems reviewed are Neg Past Family Social History Past Medical History Hypertension Hyperlipidemia Coronary artery disease Chronic diastolic congestive heart failure History of atrial fibrillation Cardial infarction Chronic kidney disease stage III History of CVA History GI bleed Sick sinus syndrome Past Surgical History Cardiovascular surgery 5 vessel Prone pacemaker placement Cataract surgery next line tonsillectomy Hysterectomy Reported Medications Reported Meds & Active Scripts Active Furosemide 40 Mg Tab 40 Mg PO DAILY Reported Aspirin 81 Mg Chew 81 Mg CHEW DAILY Plavix (Clopidogrel Bisulfate) 75 Mg Tab 75 Mg PO DAILY Spironolactone 25 Mg Tab 25 Mg PO BIDPC Atorvastatin (Atorvastatin Calcium) 20 Mg Tab 20 Mg PO HS Isosorbide Mononitrate 20 Mg Tab 30 Mg PO DAILY Take 2 doses 7 hours apart. Lunesta (Eszopiclone) 2 Mg Tab 3 Mg PO HS PRN Allergies: Coded Allergies: Sulfa (Sulfonamide Antibiotics) (Unverified Allergy, Unknown, UNKNOWN, ) penicillin G (Unverified Allergy, Unknown, [facility] Family History Reviewed is significant for brother having 2 bypass surgeries, father from heart disease Social History Patient denies any tobacco, alcohol or illicit drugs Physical Exam Vital Signs Vital Signs Date Time Temp Pulse Resp B/P (MAP) Pulse Ox O2 Delivery O2 Flow Rate FiO2 07/30/17 16:08 70 16 168/81 (110) 96 07/30/17 15:05 67 16 171/78 (109) 95 Room Air 07/30/17 15:00 16 07/30/17 15:00 72 07/30/17 14:00 62 16 185/92 (123) 94 Room Air 07/30/17 13:15 97.9 75 16 168/73 (104) 92 Room Air 07/30/17 12:58 95 Room Air 07/30/17 12:17 64 16 177/82 (113) 95 Physical Exam GENERAL: Well-developed, well-nourished, in no acute distress. alert and orientated HEENT: Head is normocephalic without any lesions or masses noted. Facial features are symmetric. Eyes: Pupils equal round reactive to light. Extraocular muscles are intact. Conjunctivae were clear. Oropharyngeal: Pharynx without any erythema edema. Tongue is midline without deviation. Buccal mucosa is moist without any masses or lesions NECK: Supple without any masses. Trachea midline no deviation. No JVD, no bruits are appreciated CARDIAC: Regular rhythm, regular rate. S1/S2 are heard. No murmurs gallops or rubs. LUNGS: Clear to auscultation bilaterally. No wheeze, rhonchi or rales. No use of accessory muscles on inspiration or expiration. ABDOMEN: Soft, palpable tenderness noted in the epigastric region. Nondistended. Bowel sounds heard in all 4 quadrants. No organomegaly or masses. Negative rebound, negative guarding EXTREMITIES: No edema, pulses are equal bilaterally. No cyanosis or clubbing NEUROLOGY: Mood and affect appear appropriate. Cranial nerves II through XII grossly intact. Muscle strength 5/5 in upper and lower extremities bilaterally. Deep tendon reflexes are 2+ in upper and lower extremities bilaterally. Laboratory Laboratory Tests Test 07/30/17 12:50 07/30/17 13:10 White Blood Count 5.8 Red Blood Count 4.94 Hemoglobin 10.6 Hematocrit 35.2 Mean Corpuscular Volume 71.2 Mean Corpuscular Hemoglobin 21.5 Mean Corpuscular Hemoglobin Concent 30.1 Red Cell Distribution Width 17.7 Platelet Count 263 Mean Platelet Volume 8.0 Neutrophils (%) (Auto) 66.9 Lymphocytes (%) (Auto) 14.1 Monocytes (%) (Auto) 11.9 Eosinophils (%) (Auto) 6.5 Basophils (%) (Auto) 0.6 Neutrophils # (Auto) 3.9 Lymphocytes # (Auto) 0.8 Monocytes # (Auto) 0.7 Eosinophils # (Auto) 0.4 Basophils # (Auto) 0.0 CBC Comment AUTO DIFF Differential Comment AUTO DIFF CONFIRMED Platelet Estimate NORMAL Platelet Morphology Comment NORMAL Ovalocytes 1+ Rouleau PRESENT Prothrombin Time 12.4 Prothromb Time International Ratio 1.2 Activated Partial Thromboplast Time 29.3 Blood Urea Nitrogen 24 Creatinine 1.50 Random Glucose 101 Total Protein 6.6 Albumin 3.4 Calcium Level 8.8 Magnesium Level 2.2 Alkaline Phosphatase 115 Aspartate Amino Transf (AST/SGOT) 31 Alanine Aminotransferase (ALT/SGPT) 21 Total Bilirubin 1.5 Sodium Level 138 Potassium Level 4.2 Chloride Level 106 Carbon Dioxide Level 21.8 Anion Gap 10 Estimat Glomerular Filtration Rate 33 Total Creatine Kinase 244 Creatine Kinase MB 11.0 Creatine Kinase MB % 4.5 Troponin I 0.06 B-Type Natriuretic Peptide 802 Lipase 360 Urine Collection Type cc Urine Color y Urine Turbidity c Urine pH 5.5 Urine Specific [place] 1.016 Urine Protein 30 Urine Glucose (UA) NEG Urine Ketones TRACE Urine Occult Blood NEG Urine Nitrite NEG Urine Bilirubin NEG Urine Leukocyte Esterase TRACE Urine RBC 0-3 Urine WBC 0-2 Urine Squamous Epithelial Cells 0-5 Microscopic Urinalysis Comment CULT NOT INDICATED Result Diagram: 07/30/17 1250 07/30/17 1250 Imaging Last Impressions Chest X-Ray 07/30/17 1228 Signed Impressions: Service Date/Time: Sunday, July 30, 2017 12:35 - CONCLUSION: 1. Cardiomegaly with no definite pulmonary edema. 2. Status post median sternotomy. Babar Lyons MD Abdomen/Pelvis CT 07/30/17 0000 Signed Impressions: Service Date/Time: Sunday, July 30, 2017 14:17 - CONCLUSION: 1. No specific acute finding is identified to explain the diffuse abdominal pain. There is a small volume of free fluid in the abdomen and pelvis from uncertain etiology. 2. Small bilateral pleural effusions, left larger than right. 3. Enlarged right heart with reflux of contrast into enlarged IVC and hepatic veins is suggestive of elevated right heart pressures or tricuspid regurgitation. 4. Nonacute findings include moderate size hiatal hernia, cholelithiasis, sigmoid diverticulosis, and moderate to severe atherosclerotic disease. There also stable findings indicative of old granulomatous infection. MD Dixon Ramosi VTE Risk Assessment Caprini VTE Risk Assessment: Mod/High Risk (score >= 2) Caprini Risk Assessment Model Point Value = 1 Point Value = 2 Point Value = 3 Point Value = 5 Age 41-60 Minor surgery BMI > 25 kg/m2 Swollen legs Varicose veins or History of unexplained or recurrent spontaneous Oral contraceptives or hormone replacement Sepsis (< 1 month) Serious lung disease, including pneumonia (< 1 month) Abnormal pulmonary function Acute myocardial infarction Congestive heart failure (< 1 month) History of inflammatory bowel disease Medical patient at bed rest Age 61-74 Arthroscopic surgery Major open surgery (> 45 min) Laparoscopic surgery (> 45 min) Malignancy Confined to bed (> 72 hours) Immobilizing plaster cast Central venous access Age >= 75 History of VTE Family history of VTE Factor V Leiden Prothrombin [id number] Lupus anticoagulant Anticardiolipin antibodies Elevated serum homocysteine Heparin-induced thrombocytopenia Other congenital or acquired thrombophilia Stroke (< 1 month) Elective arthroplasty Hip, pelvis, or leg fracture Acute spinal cord injury (< 1 month) Prophylaxis Regimen Total Risk Factor Score Risk Level Prophylaxis Regimen 0-1 Low Early ambulation 2 Moderate Order ONE of the following: *Sequential Compression Device (SCD) *Heparin 5000 units SQ BID 3-4 Higher Order ONE of the following medications: *Heparin 5000 units SQ TID *Enoxaparin/Lovenox 40 mg SQ daily (WT < 150 kg, CrCl > 30 mL/min) *Enoxaparin/Lovenox 30 mg SQ daily (WT < 150 kg, CrCl > 10-29 mL/min) *Enoxaparin/Lovenox 30 mg SQ BID (WT < 150 kg, CrCl > 30 mL/min) AND/OR *Sequential Compression Device (SCD) 5 or more Highest Order ONE of the following medications: *Heparin 5000 units SQ TID (Preferred with Epidurals) *Enoxaparin/Lovenox 40 mg SQ daily (WT < 150 kg, CrCl > 30 mL/min) *Enoxaparin/Lovenox 30 mg SQ daily (WT < 150 kg, CrCl > 10-29 mL/min) *Enoxaparin/Lovenox 30 mg SQ BID (WT < 150 kg, CrCl > 30 mL/min) AND *Sequential Compression Device (SCD) Assessment and Plan Assessment and Plan Non-ST elevated myocardial infarction Patient with significant risk factors to include hypertension, hyperlipidemia , history of myocardial infarctions, coronary artery disease, age We'll continue to trend cardiac enzymes and EKGs, patient initially with positive troponin with positive CK-MB percent Consult patient's construction estimator Dr. Mendoza Patient will be continued on aspirin, beta kuldip, PETER inhibitor, statin, nitrate Anticoagulation per cardiology Chronic diastolic congestive heart failure Patient with elevated BNP, however chest x-ray does not indicate any pulmonary edema, no lower extremity edema, no orthopnea, no dyspnea on exertion Continue diuresis at this time Start beta kuldip, PETER inhibitor Strict input and output Daily weights Hypertension, hyperlipidemia, coronary disease Home medications have been continued Chronic kidney disease stage III Renal function remained stable Continue monitor renal function Avoid nephrotoxins DVT prevention Sequential compression devices Code Status No code Discussed Condition With Discuss with nursing staff, ER physician, Dr. Cruz Physician Certification 2 Midnight Certification Type: Admission for Inpatient Services Order for Inpatient Services The services are ordered in accordance with Medicare regulations or non- Medicare payer requirements, as applicable. In the case of services not specified as inpatient-only, they are appropriately provided as inpatient services in accordance with the 2-midnight benchmark. Estimated LOS (days): 3 days is the estimated time the patient will need to remain in the hospital, assuming treatment plan goals are met and no additional complications. Post-Hospital Plan: Not yet determined Problem Qualifiers (1) Abdominal pain: Qualified Codes: R10.9 - Unspecified abdominal pain Ulysses Tian Jul 30, 2017 16:29
[2017-07-30] MEDS ORDERED: FAMOTIDINE 20 MG TAB PO SCH (17:00)
[2017-07-30 18:06] LABS: TROPONIN I 0.05 NG/ML (0.02-0.05)
[2017-07-30] MEDS: NITROGLYCERIN 2% OINT 1 GM PACKET TOP SCH (18:19)
[2017-07-30] MEDS: FUROSEMIDE 40 MG/4 ML VIAL IVP SCH (18:19)
[2017-07-30] MEDS: SPIRONOLACTONE 25 MG TAB PO SCH (18:22)
[2017-07-30] MEDS: LISINOPRIL 5 MG TAB PO SCH (18:22)
[2017-07-30] MEDS: CARVEDILOL 3.125 MG TAB PO SCH (20:20)
[2017-07-30] MEDS: POTASSIUM CHLORIDE 10 MEQ CONTROLLED RELEASE TAB PO SCH (20:20)
[2017-07-30] MEDS: SODIUM CHLORIDE 0.9% FLUSH 10 ML FLUSH IV FLUSH SCH (20:21)
[2017-07-30] MEDS ORDERED: ESZOPICLONE 1 MG TAB PO PRN (21:00)
[2017-07-30] MEDS ORDERED: SODIUM CHLORIDE 0.9% FLUSH 10 ML FLUSH IV FLUSH SCH (21:00)
[2017-07-30] MEDS ORDERED: ATORVASTATIN 20 MG TAB PO SCH (21:00)
[2017-07-31] VITALS: BP 154/83; PULSE 67; RESP 18; TEMP 97.4; O2SAT 93
[2017-07-31] MEDS: NITROGLYCERIN 2% OINT 1 GM PACKET TOP SCH ×2 (00:12→06:17)
[2017-07-31 02:28] LABS: TROPONIN I 0.07 NG/ML (0.02-0.05)
[2017-07-31 04:00] VITALS: BP 146/77; PULSE 68; RESP 16; TEMP 97.4; O2SAT 93
[2017-07-31 06:28] LABS: CHLORIDE 104 MEQ/L (98-107); SODIUM (NA) 138 MEQ/L (136-145)
[2017-07-31 06:33] LABS: ALBUMIN 3.3 GM/DL (3.4-5.0); BICARBONATE 24.6 MEQ/L (21.0-32.0); BLOOD UREA NITROGEN 23 MG/DL (7-18); GLUCOSE,RANDOM 100 MG/DL (74-106)
[2017-07-31 06:36] LABS: ALT (GPT) 20 U/L (10-53); AST (GOT) 29 U/L (15-37); GLOMERULAR FILTRATION RATE 33 ML/MIN (>89)
[2017-07-31 06:37] LABS: TOTAL BILIRUBIN ADULT 1.6 MG/DL (0.2-1.0); TOTAL PROTEIN 6.3 GM/DL (6.4-8.2)
[2017-07-31 06:39] LABS: ALKALINE PHOSPHATASE 108 U/L (45-117)
[2017-07-31 06:41] LABS: TROPONIN I 0.07 NG/ML (0.02-0.05)
[2017-07-31] MEDS ORDERED: ISOSORBIDE MONONITRATE 30 MG TAB PO SCH (07:00)
[2017-07-31 08:00] VITALS: BP 139/74; PULSE 72; RESP 18; TEMP 97.7; O2SAT 96
[2017-07-31 08:24] VITALS: PULSE 61
[2017-07-31] MEDS: POTASSIUM CHLORIDE 10 MEQ CONTROLLED RELEASE TAB PO SCH (08:41)
[2017-07-31] MEDS: LISINOPRIL 5 MG TAB PO SCH (08:42)
[2017-07-31] MEDS: SODIUM CHLORIDE 0.9% FLUSH 10 ML FLUSH IV FLUSH SCH (08:42)
[2017-07-31] MEDS: SPIRONOLACTONE 25 MG TAB PO SCH (08:43)
[2017-07-31] MEDS: CARVEDILOL 3.125 MG TAB PO SCH (08:43)
[2017-07-31] MEDS: FUROSEMIDE 40 MG/4 ML VIAL IVP SCH (08:44)
[2017-07-31] MEDS ORDERED: ASPIRIN 81 MG CHEW TAB CHEW SCH (09:00)
[2017-07-31] MEDS ORDERED: CLOPIDOGREL 75 MG TAB PO SCH (09:00)
[2017-07-31] MEDS ORDERED: FAMOTIDINE 20 MG TAB PO SCH (09:00)
--- NOTE | 2017-07-31 09:02 | HHI.DCPOC ---
Discharge Care Plan Diagnosis: (1) Chronic diastolic congestive heart failure (2) Elevated troponin Goals to Promote Your Health * To prevent worsening of your condition and complications * To maintain your health at the optimal level Directions to Meet Your Goals Take your medications as prescribed Follow your dietary instruction Follow activity as directed Keep your appointments as scheduled Take your immunizations and boosters as scheduled If your symptoms worsen call your PCP, if no PCP go to Urgent Care Center or Emergency Room Smoking is Dangerous to Your Health. Avoid second hand smoke Call the 24-hour hour crisis hotline for domestic abuse at Ulysses Tian Jul 31, 2017 09:02
[2017-07-31] MEDS ORDERED: LISI-519 PO (09:06)
[2017-07-31] MEDS ORDERED: CARV3.125 PO (09:06)
[2017-07-31] MEDS ORDERED: FAMO20TA2 PO (09:06)
--- NOTE | 2017-07-31 09:12 | HHI.DS ---
Discharge Summary Admission Date Jul 30, 2017 at 16:13 Discharge Date: Jul 31, 2017 Admitting Diagnosis chf exacerbation (1) Abdominal pain ICD Code: R10.9 - Unspecified abdominal pain Diagnosis: Principal Status: Acute (2) Elevated troponin ICD Code: R74.8 - Abnormal levels of other serum enzymes Diagnosis: Principal (3) Chronic diastolic congestive heart failure ICD Code: I50.32 - Chronic diastolic (congestive) heart failure Diagnosis: Principal (4) Chronic kidney disease, stage 3 ICD Code: N18.3 - Chronic kidney disease, stage 3 (moderate) Diagnosis: Secondary Procedures None Brief History - From Admission 86-year-old female with known history of coronary artery disease, congestive heart failure, history myocardial infarction, coronary disease, chronic abdominal pain, obstipation, chronic kidney disease stage III, hyponatremia, atrial fibrillation who presented to the hospital secondary to shortness of breath and dyspnea. Patient states that over the last month she has been having worsening abdominal discomfort mainly located in the epigastric region. She has been trying to get an appointment with her long goods drier Dr. Chiang, however has been unsuccessful. Over last couple days she has been having worsening shortness of breath with episodes of waking up in the middle night gasping for air. Because her breathing did not improve she came to the emergency department for evaluation. Patient had workup done and was found to have elevated cardiac enzymes, CK-MB, troponin which is indicative of myocardial infarction. Is recommended by the ER physician that the patient be admitted to the hospital for further management. ER documentation indicates that the ER physician discussed with psychology professor who indicated medical management at this time. I did discuss with the patient that if she needed to have cardiac catheterization she is open for at this time. However DNR status was acquired and patient does not want to be resuscitated. Patient will remain in the hospital, cardiac consultation were requested. . CBC/BMP: 07/30/17 1250 07/31/17 0605 Significant Findings Laboratory Tests Test 07/30/17 12:50 07/30/17 13:10 07/30/17 17:20 07/31/17 02:00 Hemoglobin 10.6 GM/DL (11.6-15.3) Mean Corpuscular Volume 71.2 FL (80.0-100.0) Mean Corpuscular Hemoglobin 21.5 PG (27.0-34.0) Mean Corpuscular Hemoglobin Concent 30.1 % (32.0-36.0) Red Cell Distribution Width 17.7 % (11.6-17.2) Monocytes (%) (Auto) 11.9 % (0.0-8.0) Eosinophils (%) (Auto) 6.5 % (0.0-4.0) Lymphocytes # (Auto) 0.8 TH/MM3 (1.0-4.8) Ovalocytes 1+ (NORMAL) Rouleau PRESENT (NORMAL) Prothrombin Time 12.4 SEC (9.8-11.6) Blood Urea Nitrogen 24 MG/DL (7-18) Creatinine 1.50 MG/DL (0.50-1.00) Total Bilirubin 1.5 MG/DL (0.2-1.0) Estimat Glomerular Filtration Rate 33 ML/MIN (>89) Total Creatine Kinase 244 U/L (26-192) 239 U/L (26-192) 221 U/L (26-192) Creatine Kinase MB 11.0 NG/ML (0.5-3.6) 9.9 NG/ML (0.5-3.6) 8.6 NG/ML (0.5-3.6) Creatine Kinase MB % 4.5 % (0.0-4.0) 4.1 % (0.0-4.0) Troponin I 0.06 NG/ML (0.02-0.05) 0.07 NG/ML (0.02-0.05) B-Type Natriuretic Peptide 802 PG/ML (0-100) Urine Protein 30 mg/dL (NEG-TRACE) Urine Ketones TRACE mg/dL (NEG) Urine Leukocyte Esterase TRACE (NEG) Test 07/31/17 06:05 Blood Urea Nitrogen 23 MG/DL (7-18) Creatinine 1.50 MG/DL (0.50-1.00) Total Protein 6.3 GM/DL (6.4-8.2) Albumin 3.3 GM/DL (3.4-5.0) Total Bilirubin 1.6 MG/DL (0.2-1.0) Estimat Glomerular Filtration Rate 33 ML/MIN (>89) Total Creatine Kinase 220 U/L (26-192) Creatine Kinase MB 8.2 NG/ML (0.5-3.6) Troponin I 0.07 NG/ML (0.02-0.05) B-Type Natriuretic Peptide 556 PG/ML (0-100) Imaging Last Impressions Chest X-Ray 07/30/17 1228 Signed Impressions: Service Date/Time: Sunday, July 30, 2017 12:35 - CONCLUSION: 1. Cardiomegaly with no definite pulmonary edema. 2. Status post median sternotomy. Babar Lyons MD Abdomen/Pelvis CT 07/30/17 0000 Signed Impressions: Service Date/Time: Sunday, July 30, 2017 14:17 - CONCLUSION: 1. No specific acute finding is identified to explain the diffuse abdominal pain. There is a small volume of free fluid in the abdomen and pelvis from uncertain etiology. 2. Small bilateral pleural effusions, left larger than right. 3. Enlarged right heart with reflux of contrast into enlarged IVC and hepatic veins is suggestive of elevated right heart pressures or tricuspid regurgitation. 4. Nonacute findings include moderate size hiatal hernia, cholelithiasis, sigmoid diverticulosis, and moderate to severe atherosclerotic disease. There also stable findings indicative of old granulomatous infection. Tomasz Rutledge MD Hospital Course 86-year-old female with known history of coronary disease, diastolic congestive heart failure, history myocardial infarction, coronary artery disease, chronic abdominal pain, chronic kidney disease stage III, history of atrial fibrillation , hyperlipidemia who presented to hospital because of shortness of breath and dyspnea. Patient states that for over a month she was experiencing her chronic abdominal pain with abdominal soreness she has been trying to get an appointment with her GI doctor. However last 2 nights she is had increased shortness of breath, paroxysmal nocturnal dyspnea, dyspnea on exertion. Patient came to emergency department for evaluation and had multiple abnormalities to include elevated BNP, elevated CK-MB percent. Chest x-ray did not indicate any pulmonary edema. No clinical findings of any lower extremity edema. Patient denies any actual chest discomfort. Only was complaining of abdominal soreness. Is recommended by ER physician that the patient be admitted for further evaluation and management. Patient was admitted and maximize her medications for coronary disease, CHF with increased diuresis. Patient was started on beta kuldip, PETER inhibitor. Continued on Imdur, statin , aspirin. Patient tolerated treatment well and today she is feeling much better. She is no longer experiencing any shortness of breath, dyspnea. Discussed with patient's psychology professor Dr. Mendoza, we went over the patient's records extensively. Reviewed previous cardiac catheterizations. Dr. Mendoza was in agreement with maximizing patient's medication regimen to include the beta kuldip and PETER inhibitor. Since she is significantly improved without any active chest pain. He recommended outpatient follow-up this week for further evaluation management. Did discuss with the patient her abdominal discomfort which appears to be chronic she has also been to the [facility] for evaluation. I recommend patient continue follow-up with her GI physician this week in order to have further recommendations. Patient is in agreement. She is very comfortable going home today. Patient denies any new complaints. We' ll plan discharge accordingly. Pt Condition on Discharge: Stable Discharge Disposition: Discharge Home Discharge Time: > 30 minutes Discharge Instructions DIET: Follow Instructions for: Heart Healthy Diet Activities you can perform: Regular-No Restrictions Follow up Referrals: Cardiology - 2-[address] Mendoza PCP Follow-up - 1 Week New Medications: Carvedilol (Coreg) 3.125 Mg Tab 3.125 MG PO BID for CHF, CAD, blood pressure, #60 TAB Famotidine (Famotidine) 20 Mg Tab 20 MG PO DAILY for GI protection, #30 TAB Lisinopril (Lisinopril) 5 Mg Tab 5 MG PO DAILY for CHF, blood pressure management, #30 TAB Continued Medications: Aspirin (Aspirin) 81 Mg Chew 81 MG CHEW DAILY, TAB 0 Refills Atorvastatin (Atorvastatin) 20 Mg Tab 20 MG PO HS for Cholesterol Management, #30 TAB 0 Refills Clopidogrel (Plavix) 75 Mg Tab 75 MG PO DAILY for Blood Clot Prevention, #30 TAB 0 Refills Eszopiclone (Lunesta) 2 Mg Tab 3 MG PO HS PRN for INSOMNIA, TAB 0 Refills Furosemide (Furosemide) 40 Mg Tab 40 MG PO DAILY, #30 TAB Isosorbide Mononitrate (Isosorbide Mononitrate) 20 Mg Tab 30 MG PO DAILY for Prevent Chest Pain, #60 TAB 0 Refills Take 2 doses 7 hours apart. Spironolactone (Spironolactone) 25 Mg Tab 25 MG PO BIDPC, #60 TAB 0 Refills Ulysses Tian Jul 31, 2017 09:12
--- NOTE | 2017-07-31 09:33 | EKG ---
Date Performed: 07/31/2017 Time Performed: 06:23:57 PTAGE: 86 years EKG: ELECTRONIC VENTRICULAR PACEMAKER -- CONTOUR ANALYSIS BASED ON INTRINSIC RHYTHM MARKED LEFT AXIS DEVIATION INCOMPLETE RIGHT BUNDLE BRANCH BLOCK ST DEVIATION AND MODERATE T-WAVE ABNORMALITY, CON HOT STRIP MILL SUPERVISOR ANTEROLATERAL ISCHEMIA ST DEVIATION AND MODERATE T-WAVE ABNORMALITY, CONSIDER INFERIOR ISCHEMIA ABNORMAL ECG PREVIOUS TRACING : 07/31/2017 01.39 DOCTOR: Rachid Gutierrez Interpretating Date/Time 07/31/2017 09:32:29
--- NOTE | 2017-07-31 09:40 | EKG ---
Date Performed: 07/31/2017 Time Performed: 01:39:46 PTAGE: 86 years EKG: ELECTRONIC VENTRICULAR PACEMAKER -- CONTOUR ANALYSIS BASED ON INTRINSIC RHYTHM BORDERLINE L EFT AXIS DEVIATION INCOMPLETE RIGHT BUNDLE BRANCH BLOCK ST DEVIATION AND MODERATE T-WAVE ABNORMALITY, CONSIDER ANTEROLATERAL ISCHEMIA ABNORMAL ECG PREVIOUS TRACING : 07/30/2017 17.56 DOCTOR: Rachid Gutierrez Interpretating Date/Time 07/31/2017 09:39:15
[2017-07-31 09:52] LABS: CHOLESTEROL 72 MG/DL (120-200); TRIGLYCERIDES 86 MG/DL (42-150)
[2017-07-31 09:53] LABS: HDL CHOLESTEROL 27.6 MG/DL (40.0-60.0); LDL CHOLESTEROL 27 MG/DL (0-99)
--- NOTE | 2017-07-31 09:53 | EKG ---
Date Performed: 07/30/2017 Time Performed: 17:56:45 PTAGE: 86 years EKG: UNCERTAIN IRREGULAR RHYTHM ELECTRONIC VENTRICULAR PACEMAKER -- CONTOUR ANALYSIS BASED ON IN TRINSIC RHYTHM BORDERLINE LEFT AXIS DEVIATION INCOMPLETE RIGHT BUNDLE BRANCH BLOCK ST DEVIATION AND M ODERATE T-WAVE ABNORMALITY, CONSIDER ANTEROLATERAL ISCHEMIA ABNORMAL ECG PREVIOUS TRACING : 07/30/2017 12.51 DOCTOR: Rachid Gutierrez Interpretating Date/Time 07/31/2017 09:53:14
--- NOTE | 2017-07-31 10:46 | EKG ---
Date Performed: 07/30/2017 Time Performed: 12:51:14 PTAGE: 86 years EKG: UNCERTAIN IRREGULAR RHYTHM ELECTRONIC VENTRICULAR PACEMAKER -- CONTOUR ANALYSIS BASED ON IN TRINSIC RHYTHM INCOMPLETE RIGHT BUNDLE BRANCH BLOCK ST DEVIATION AND MODERATE T-WAVE ABNORMALITY, CON RETAIL SERVICE TECHNICIAN ANTERIOR ISCHEMIA ABNORMAL ECG PREVIOUS TRACING : 05/19/2017 18.26 DOCTOR: Rachid Gutierrez Interpretating Date/Time 07/31/2017 10:45:18
== END 2017-07-31 11:07 | disposition home or self-care (01) | DRG 948 ==
LOC: PHED 12:13 → PHEDA 15:17 → OBSVTOIN 16:13 → PH3A 16:23
PROVIDERS: ADMIT Hospitalist; ATTEND Hospitalist
DX: R74.8 Abnormal levels of other serum enzymes (principal); I50.32 Chronic diastolic (congestive) heart failure; I13.0 Hypertensive heart and chronic kidney disease with heart failure and stage 1 through stage 4 chronic kidney disease, or unspecified chronic kidney disease; I48.91 Unspecified atrial fibrillation; R10.9 Unspecified abdominal pain; N18.3 Chronic kidney disease, stage 3 (moderate); I25.2 Old myocardial infarction; E78.5 Hyperlipidemia, unspecified; I25.10 Atherosclerotic heart disease of native coronary artery without angina pectoris; M19.90 Unspecified osteoarthritis, unspecified site; F32.9 Major depressive disorder, single episode, unspecified; F41.9 Anxiety disorder, unspecified; Z66 Do not resuscitate; Z82.49 Family history of ischemic heart disease and other diseases of the circulatory system; Z86.73 Personal history of transient ischemic attack (TIA), and cerebral infarction without residual deficits; Z88.0 Allergy status to penicillin; Z88.2 Allergy status to sulfonamides; Z95.0 Presence of cardiac pacemaker; Z95.1 Presence of aortocoronary bypass graft
CPT/HCPCS: 71046; 74177; 80053; 80061; 81001; 82550; 82552; 83690; 83735; 83880; 84484; 85025; 85610; 85730; 93005; 96374; J1940; Q9967

== ENCOUNTER → 2017-08-09 | Outpatient (CLI) | payer MEDICARE ==
[~2017-08-09] MED LIST changes: +CARV3.125 PO; +FAMO20TA2 PO; +LISI-519 PO
[2017-08-09 12:27] LABS: BICARBONATE 25.8 MEQ/L (21.0-32.0); CALCIUM 9.2 MG/DL (8.5-10.1); CREATININE 1.78 MG/DL (0.50-1.00)
== END ==
LOC: PLAB 10:49
PROVIDERS: ATTEND Internal Medicine Cardiovascular Disease
DX: I50.9 Heart failure, unspecified (principal); I25.10 Atherosclerotic heart disease of native coronary artery without angina pectoris; R07.9 Chest pain, unspecified; J90 Pleural effusion, not elsewhere classified; N18.9 Chronic kidney disease, unspecified
CPT/HCPCS: 36415; 80048

== ENCOUNTER → 2017-08-15 | Outpatient (CLI) | payer MEDICARE ==
[2017-08-15 16:18] LABS: CALCIUM 9.1 MG/DL (8.5-10.1); CREATININE 1.73 MG/DL (0.50-1.00)
== END ==
LOC: PLAB 13:35
PROVIDERS: ATTEND Internal Medicine Cardiovascular Disease
DX: I48.91 Unspecified atrial fibrillation (principal); E78.5 Hyperlipidemia, unspecified; R06.02 Shortness of breath; I49.5 Sick sinus syndrome; I50.9 Heart failure, unspecified; I12.9 Hypertensive chronic kidney disease with stage 1 through stage 4 chronic kidney disease, or unspecified chronic kidney disease; N18.9 Chronic kidney disease, unspecified; I25.118 Atherosclerotic heart disease of native coronary artery with other forms of angina pectoris
CPT/HCPCS: 36415; 80048

== ENCOUNTER → 2017-08-19 | Outpatient (CLI) | payer MEDICARE ==
[2017-08-19 09:58] LABS: HEMATOCRIT 34.1 % (35.0-46.0); HEMOGLOBIN 10.7 GM/DL (11.6-15.3); MEAN CELL VOLUME 70.8 FL (80.0-100.0); MEAN CORPUSCULAR HEMOGLOBIN 22.2 PG (27.0-34.0); MEAN CORPUSCULAR HGB CONC 31.3 % (32.0-36.0); MEAN PLATELET VOLUME 7.7 FL (7.0-11.0); PLATELET COUNT 207 TH/MM3 (150-450); RED BLOOD COUNT 4.82 MIL/MM3 (4.00-5.30); RED CELL DISTRIBUTION WIDTH 18.8 % (11.6-17.2); WHITE BLOOD COUNT 4.3 TH/MM3 (4.0-11.0)
[2017-08-19 10:20] LABS: ALBUMIN 3.8 GM/DL (3.4-5.0); AST (GOT) 31 U/L (15-37); BICARBONATE 27.5 MEQ/L (21.0-32.0); BLOOD UREA NITROGEN 34 MG/DL (7-18); CALCIUM 9.6 MG/DL (8.5-10.1); CHLORIDE 106 MEQ/L (98-107); CREATININE 1.64 MG/DL (0.50-1.00); GLOMERULAR FILTRATION RATE 30 ML/MIN (>89); GLUCOSE,FASTING 108 MG/DL (74-99); SODIUM (NA) 140 MEQ/L (136-145)
[2017-08-19 10:22] LABS: CHOLESTEROL 78 MG/DL (120-200)
[2017-08-19 10:25] LABS: ALKALINE PHOSPHATASE 120 U/L (45-117); ALT (GPT) 20 U/L (10-53); HDL CHOLESTEROL 35.4 MG/DL (40.0-60.0); LDL CHOLESTEROL 29 MG/DL (0-99); LDL CHOLESTEROL DIRECT 42 MG/DL (0-99); TOTAL BILIRUBIN ADULT 1.2 MG/DL (0.2-1.0); TRIGLYCERIDES 67 MG/DL (42-150)
== END ==
LOC: PLAB 07:37
PROVIDERS: ATTEND Family Medicine
DX: I25.10 Atherosclerotic heart disease of native coronary artery without angina pectoris (principal); N18.4 Chronic kidney disease, stage 4 (severe); E78.2 Mixed hyperlipidemia
CPT/HCPCS: 36415; 80053; 80061; 83721; 85027

== ENCOUNTER 2017-08-29 13:31 | Emergency (ER) | payer MEDICARE ==
[~2017-08-29] VITALS: Ht 165.1 cm; Wt 68.0 kg
[2017-08-29 13:35] VITALS: BP 124/56; PULSE 79; RESP 16; TEMP 97.9; O2SAT 95
--- NOTE | 2017-08-29 14:01 | PD ---
HPI Chief Complaint: Cold / Flu Symptoms Time Seen by Provider: 13:47 Travel History International Travel<30 days: No Contact w/Intl Traveler<30days: No Traveled to known affect area: No History of Present Illness HPI This is an 86-year-old female who presents for cough. She states that she has had 3 days of nasal congestion and nonproductive cough. She has mildly sore throat as well. No rash, headache, neck pain or stiffness. No earache. No difficulty swallowing or speaking. She states that she has had mild shortness of breath with walking. No associated nausea, vomiting, diarrhea. No chest pain or diaphoresis. No lower extremity edema, calf pain, immobility. Symptoms are mild to moderate in severity. Onset gradual. She saw her primary care physician who referred her to the emergency department. She tried taking one dose of [id number] cough and cold medication last night. PFSH Past Medical History Hx Anticoagulant Therapy: Yes (PLAVIX) Arthritis: Yes Asthma: No Blood Disorders: No Anxiety: Yes Depression: Yes Heart Rhythm Problems: Yes (Afib) Cancer: Yes (colon) Cardiac Catheterization: Yes Cardiovascular Problems: Yes (PACER, BYPASS, PA, HTN, CHOL) High Cholesterol: Yes Chemotherapy: No Chest Pain: Yes Congestive Heart Failure: Yes COPD: No Cerebrovascular Accident: No Diabetes: No Diminished Hearing: No Diverticulitis: Yes Endocrine: No Gastrointestinal Disorders: Yes (GALLSTONES ) GERD: No Glaucoma: No Genitourinary: No Headaches: Yes Hiatal Hernia: No Hypertension: Yes Immune Disorder: No Musculoskeletal: Yes Neurologic: No Psychiatric: No Reproductive: No Respiratory: No Immunizations Current: No Migraines: No Myocardial Infarction: Yes (X 1) Radiation Therapy: No Seizures: No Sleep Apnea: No Ulcer: No Menopausal: Yes : 3 Para: 2 Miscarriage: 1 Tubal Ligation: Yes Past Surgical History Abdominal Surgery: No AICD: No Appendectomy: No Arteriovenous Shunt: No Cardiac Surgery: Yes (PACEMAKER - FEB 2015) Coronary Artery Bypass Graft: Yes (5 VESSEL 2001) Ear Surgery: No Endocrine Surgery: No Eye Surgery: Yes (CATARACT REMOVAL TO FLORENCIA EYES) Genitourinary Surgery: Yes Gynecologic Surgery: Yes Hysterectomy: Yes Insulin Pump: No Joint Replacement: No Oral Surgery: No Pacemaker: Yes Thoracic Surgery: No Tonsillectomy: Yes Other Surgery: Yes Social History Alcohol Use: No Tobacco Use: No Substance Use: No Allergies-Medications (Allergen,Severity, Reaction): Coded Allergies: Sulfa (Sulfonamide Antibiotics) (Unverified Allergy, Unknown, UNKNOWN, ) penicillin G (Unverified Allergy, Unknown, [place], 08/29/17) Reported Meds & Prescriptions Reported Meds & Active Scripts Active Tessalon Perles (Benzonatate) 100 Mg Cap 100 Mg PO TID PRN Azithromycin 250 Mg Tab 250 Mg PO DIRECTED Take 2 tabs (500 mg) on day 1 then 1 tab daily x 4 days. Lisinopril 5 Mg Tab 5 Mg PO DAILY Coreg (Carvedilol) 3.125 Mg Tab 3.125 Mg PO BID Furosemide 40 Mg Tab 40 Mg PO DAILY Reported Aspirin 81 Mg Chew 81 Mg CHEW DAILY Plavix (Clopidogrel Bisulfate) 75 Mg Tab 75 Mg PO DAILY Spironolactone 25 Mg Tab 25 Mg PO BIDPC Atorvastatin (Atorvastatin Calcium) 20 Mg Tab 20 Mg PO HS Isosorbide Mononitrate 20 Mg Tab 30 Mg PO DAILY Take 2 doses 7 hours apart. Lunesta (Eszopiclone) 2 Mg Tab 3 Mg PO HS PRN Review of Systems Except as stated in HPI: all other systems reviewed are Neg Physical Exam Narrative GENERAL: Alert, well nourished, well appearing patient resting on the bed in no acute distress. Vital Signs reviewed SKIN: Focused skin assessment warm/dry. HEAD: Atraumatic. Normocephalic. EYES: Pupils equal and round. No scleral icterus. No injection or drainage. ENT: No nasal bleeding or discharge. Mucous membranes pink and moist. TMs are clear bilaterally. No tenderness over the mastoids. Posterior oropharynx with no erythema, edema, exudate. Uvula is midline. NECK: Trachea midline. No JVD. Spontaneous, painless full range of motion with no meningismus CARDIOVASCULAR: Regular rate and rhythm. No murmur appreciated. Extremities warm and well perfused with bounding peripheral pulses RESPIRATORY: No accessory muscle use. Clear to auscultation. Breath sounds equal bilaterally. Breathing easily and speaking in full sentences GASTROINTESTINAL: Abdomen soft, non-tender, nondistended. Normal bowel sounds. No rigid, rebound, guarding MUSCULOSKELETAL: No obvious deformities. No clubbing. No cyanosis. No edema. Compartments are soft NEUROLOGICAL: Awake and alert. No obvious cranial nerve deficits. Motor grossly within normal limits. Normal speech. Sensation intact. Normal gait Data Data Last Documented VS Vital Signs Date Time Temp Pulse Resp B/P (MAP) Pulse Ox O2 Delivery O2 Flow Rate FiO2 08/29/17 15:55 65 18 131/68 (89) 97 08/29/17 14:58 Room Air 08/29/17 13:35 97.9 Orders Orders Electrocardiogram (08/29/17 13:47) Complete Blood Count With Diff (08/29/17 13:47) Comprehensive Metabolic Panel (08/29/17 13:47) Prothrombin Time / Inr (Pt) (08/29/17 13:47) Act Partial Throm Time (Ptt) (08/29/17 13:47) Lactic Acid Sepsis Protocol (08/29/17 13:47) Magnesium (Mg) (08/29/17 13:47) Ckmb (Isoenzyme) Profile (08/29/17 13:47) Troponin I (08/29/17 13:47) Influenzae A/B Antigen (08/29/17 13:47) Blood Culture (08/29/17 13:47) Chest, Pa & Lat (08/29/17 13:47) Ecg Monitoring (08/29/17 13:47) Iv Access Insert/Monitor (08/29/17 13:47) Oximetry (08/29/17 13:47) Group A Rapid Strep Screen (08/29/17 13:59) Strep Culture (Group A) (08/29/17 14:15) CKMB (08/29/17 14:10) CKMB% (08/29/17 14:10) Ed Discharge Order (08/29/17 15:41) Labs Laboratory Tests Test 08/29/17 14:10 White Blood Count 6.4 TH/MM3 Red Blood Count 4.61 MIL/MM3 Hemoglobin 10.2 GM/DL Hematocrit 31.8 % Mean Corpuscular Volume 68.9 FL Mean Corpuscular Hemoglobin 22.1 PG Mean Corpuscular Hemoglobin Concent 32.1 % Red Cell Distribution Width 18.3 % Platelet Count 208 TH/MM3 Mean Platelet Volume 8.4 FL Neutrophils (%) (Auto) 69.2 % Lymphocytes (%) (Auto) 10.3 % Monocytes (%) (Auto) 14.2 % Eosinophils (%) (Auto) 5.6 % Basophils (%) (Auto) 0.7 % Neutrophils # (Auto) 4.4 TH/MM3 Lymphocytes # (Auto) 0.7 TH/MM3 Monocytes # (Auto) 0.9 TH/MM3 Eosinophils # (Auto) 0.4 TH/MM3 Basophils # (Auto) 0.0 TH/MM3 CBC Comment AUTO DIFF Differential Comment AUTO DIFF CONFIRMED Ovalocytes 1+ Prothrombin Time 12.3 SEC Prothromb Time International Ratio 1.2 RATIO Activated Partial Thromboplast Time 29.8 SEC Blood Urea Nitrogen 30 MG/DL Creatinine 1.80 MG/DL Random Glucose 116 MG/DL Total Protein 7.3 GM/DL Albumin 3.7 GM/DL Calcium Level 8.5 MG/DL Magnesium Level 2.2 MG/DL Alkaline Phosphatase 127 U/L Aspartate Amino Transf (AST/SGOT) 35 U/L Alanine Aminotransferase (ALT/SGPT) 20 U/L Total Bilirubin 1.7 MG/DL Sodium Level 133 MEQ/L Potassium Level 4.0 MEQ/L Chloride Level 101 MEQ/L Carbon Dioxide Level 23.5 MEQ/L Anion Gap 9 MEQ/L Estimat Glomerular Filtration Rate 27 ML/MIN Lactic Acid Level 1.6 mmol/L Total Creatine Kinase 257 U/L Creatine Kinase MB 8.2 NG/ML Creatine Kinase MB % 3.2 % Troponin I 0.05 NG/ML MDM Medical Decision Making Medical Screen Exam Complete: Yes Emergency Medical Condition: Yes Medical Record Reviewed: Yes Interpretation(s) EKG shows rate of 71. No acute ST elevation. I reviewed multiple prior EKGs as recently as July 21, 2016 and this EKG looks similar. Last 24 hours Impressions Chest X-Ray 08/29/17 1347 Signed Impressions: Service Date/Time: August 14:47 - CONCLUSION: Emphysema and compensated cardiomegaly Tomasz Workman MD Laboratory Tests Test 08/29/17 14:10 White Blood Count 6.4 TH/MM3 Red Blood Count 4.61 MIL/MM3 Hemoglobin 10.2 GM/DL Hematocrit 31.8 % Mean Corpuscular Volume 68.9 FL Mean Corpuscular Hemoglobin 22.1 PG Mean Corpuscular Hemoglobin Concent 32.1 % Red Cell Distribution Width 18.3 % Platelet Count 208 TH/MM3 Mean Platelet Volume 8.4 FL Neutrophils (%) (Auto) 69.2 % Lymphocytes (%) (Auto) 10.3 % Monocytes (%) (Auto) 14.2 % Eosinophils (%) (Auto) 5.6 % Basophils (%) (Auto) 0.7 % Neutrophils # (Auto) 4.4 TH/MM3 Lymphocytes # (Auto) 0.7 TH/MM3 Monocytes # (Auto) 0.9 TH/MM3 Eosinophils # (Auto) 0.4 TH/MM3 Basophils # (Auto) 0.0 TH/MM3 CBC Comment AUTO DIFF Differential Comment AUTO DIFF CONFIRMED Ovalocytes 1+ Prothrombin Time 12.3 SEC Prothromb Time International Ratio 1.2 RATIO Activated Partial Thromboplast Time 29.8 SEC Blood Urea Nitrogen 30 MG/DL Creatinine 1.80 MG/DL Random Glucose 116 MG/DL Total Protein 7.3 GM/DL Albumin 3.7 GM/DL Calcium Level 8.5 MG/DL Magnesium Level 2.2 MG/DL Alkaline Phosphatase 127 U/L Aspartate Amino Transf (AST/SGOT) 35 U/L Alanine Aminotransferase (ALT/SGPT) 20 U/L Total Bilirubin 1.7 MG/DL Sodium Level 133 MEQ/L Potassium Level 4.0 MEQ/L Chloride Level 101 MEQ/L Carbon Dioxide Level 23.5 MEQ/L Anion Gap 9 MEQ/L Estimat Glomerular Filtration Rate 27 ML/MIN Lactic Acid Level 1.6 mmol/L Total Creatine Kinase 257 U/L Creatine Kinase MB 8.2 NG/ML Creatine Kinase MB % 3.2 % Troponin I 0.05 NG/ML Differential Diagnosis Acute bronchitis, pneumonia, strep pharyngitis, viral illness, influenza Narrative Course The patient was placed on the hospital monitor. IV access was established. EKG , chest x-ray, labs were performed. Patient is influenza-negative. Rapid strep was negative. She is breathing easily and speaking in full sentences upon multiple repeat exams. Her lung sounds are clear. She is having no difficulty speaking or swallowing. I spoke with Dr. Mendoza who referred her to the emergency department. We discussed her physical exam findings, vital signs, lab and imaging findings and he is comfortable with her being discharged. He agrees with plan for azithromycin, Tessalon Perles and close outpatient follow-up in his office. I reviewed the results of the workup with the patient as well as the above plan. Patient understands the importance of close outpatient follow-up. She understands she may require further testing and treatment as an outpatient. She understands strict return indications. She is comfortable with this plan and eager to go home. Diagnosis Primary Impression: Acute bronchitis Qualified Codes: J20.8 - Acute bronchitis due to other specified organisms Referrals: Piter Mendoza MD 3 days Patient Instructions: Acute Bronchitis (DC), General Instructions Additional Instructions: Drink plenty of water to stay well-hydrated. Take antibiotics as directed. Use Tessalon Perles for cough. Follow up closely with your primary physician within 1-4 days. Return if you have worsening symptoms including fever, difficulty breathing, other concerns. Med/Other Pt SpecificInfo: Prescription(s) given Scripts Benzonatate (Tessalon Perles) 100 Mg Cap 100 MG PO TID Y for COUGH, #15 CAP 0 Refills Prov: Kenya Santamaria MD 08/29/17 Azithromycin (Azithromycin) 250 Mg Tab 250 MG PO DIRECTED for Infection, #6 TAB 0 Refills Take 2 tabs (500 mg) on day 1 then 1 tab daily x 4 days. Prov: Kenya Santamaria MD 08/29/17 Disposition: 01 DISCHARGE HOME Condition: Stable Kenya Santamaria MD Aug 29, 2017 14:01
[2017-08-29 14:29] LABS: AUTOMATED NEUTROPHIL # 4.4 TH/MM3 (1.8-7.7); BASOPHIL % 0.7 % (0.0-2.0); EOSINOPHIL # 0.4 TH/MM3 (0-0.4); EOSINOPHIL % 5.6 % (0.0-4.0); HEMATOCRIT 31.8 % (35.0-46.0); HEMOGLOBIN 10.2 GM/DL (11.6-15.3); LYMPH % 10.3 % (9.0-44.0); LYMPHOCYTE # 0.7 TH/MM3 (1.0-4.8); MEAN CELL VOLUME 68.9 FL (80.0-100.0); MEAN CORPUSCULAR HEMOGLOBIN 22.1 PG (27.0-34.0); MEAN CORPUSCULAR HGB CONC 32.1 % (32.0-36.0); MEAN PLATELET VOLUME 8.4 FL (7.0-11.0); MONO % 14.2 % (0.0-8.0); MONOCYTE # 0.9 TH/MM3 (0-0.9); NEUT % 69.2 % (16.0-70.0); PLATELET COUNT 208 TH/MM3 (150-450); RED BLOOD COUNT 4.61 MIL/MM3 (4.00-5.30); RED CELL DISTRIBUTION WIDTH 18.3 % (11.6-17.2); WHITE BLOOD COUNT 6.4 TH/MM3 (4.0-11.0)
[2017-08-29 14:41] LABS: CHLORIDE 101 MEQ/L (98-107); SODIUM (NA) 133 MEQ/L (136-145)
[2017-08-29 14:44] LABS: ALBUMIN 3.7 GM/DL (3.4-5.0); BICARBONATE 23.5 MEQ/L (21.0-32.0); BLOOD UREA NITROGEN 30 MG/DL (7-18); CALCIUM 8.5 MG/DL (8.5-10.1); GLUCOSE,RANDOM 116 MG/DL (74-106); MAGNESIUM 2.2 MG/DL (1.5-2.5)
[2017-08-29 14:47] LABS: ALT (GPT) 20 U/L (10-53); AST (GOT) 35 U/L (15-37)
[2017-08-29 14:48] LABS: GLOMERULAR FILTRATION RATE 27 ML/MIN (>89); INTERNATIONAL NORMALIZED RATIO 1.2 RATIO; PROTHROMBIN TIME - PATIENT 12.3 SEC (9.8-11.6)
[2017-08-29 14:49] LABS: TOTAL BILIRUBIN ADULT 1.7 MG/DL (0.2-1.0); TOTAL PROTEIN 7.3 GM/DL (6.4-8.2)
[2017-08-29 14:50] LABS: ALKALINE PHOSPHATASE 127 U/L (45-117)
[2017-08-29 14:52] LABS: TROPONIN I 0.05 NG/ML (0.02-0.05)
[2017-08-29 14:58] VITALS: O2SAT 97
[2017-08-29 15:01] LABS: OVALOCYTES 1+ (NORMAL)
--- NOTE | 2017-08-29 15:05 | RADRPT ---
EXAM DATE/TIME: 08/29/2017 14:47 [facility] COMPARISON: CHEST PA & LAT, July 30, 2017, 12:35. INDICATIONS : Cough and short of breath for 3 days. MEDICAL HISTORY : Cardiovascular disease. Diverticulitis. Carcinoma, colon. Hypertension SURGICAL HISTORY : CABG. Pacemaker. Tubal ligation.Hysterectomy. ENCOUNTER: Initial ACUITY: 3 days PAIN SCORE: 0/10 LOCATION: Bilateral chest FINDINGS: Pacemaker device is noted with control pack over the left chest. Lungs are hyperinflated but focally clear. No pleural effusion is identified. Heart size is stable and borderline. Previous sternotomy an d CABG surgery. Mild degenerative change of the spine. CONCLUSION: Emphysema and compensated cardiomegaly Tomasz Workman MD on August 29, 2017 at 15:02 Board Certified Radiologist. This report was verified electronically.
[2017-08-29] MEDS ORDERED: BENZ100 PO (15:41)
[2017-08-29] MEDS ORDERED: AZIT250T3 PO (15:41)
[2017-08-29 15:55] VITALS: BP 131/68
--- NOTE | 2017-08-31 01:03 | EKG ---
Date Performed: 08/29/2017 Time Performed: 14:02:12 PTAGE: 86 years EKG: ATRIAL FIBRILLATION MARKED LEFT AXIS DEVIATION INCOMPLETE RIGHT BUNDLE BRANCH BLOCK ST EDUARDO ATION AND MODERATE T-WAVE ABNORMALITY ABNORMAL ECG PREVIOUS TRACING : 07/31/2017 06.23 Compared to prior tracing, paced beats no longer seen DOCTOR: Maegan Schmitt Interpretating Date/Time 08/31/2017 01:03:40
== END 2017-08-29 16:13 | disposition home or self-care (01) ==
LOC: PHED 13:31
DX: J20.8 Acute bronchitis due to other specified organisms (principal); I11.0 Hypertensive heart disease with heart failure; I50.9 Heart failure, unspecified; I25.2 Old myocardial infarction; I48.91 Unspecified atrial fibrillation; E78.00 Pure hypercholesterolemia, unspecified; R94.31 Abnormal electrocardiogram [ECG] [EKG]; F32.9 Major depressive disorder, single episode, unspecified; Z85.038 Personal history of other malignant neoplasm of large intestine; Z95.0 Presence of cardiac pacemaker; Z95.1 Presence of aortocoronary bypass graft; Z88.2 Allergy status to sulfonamides; Z88.0 Allergy status to penicillin; Z79.82 Long term (current) use of aspirin; Z79.899 Other long term (current) drug therapy
CPT/HCPCS: 71046; 80053; 82550; 82552; 83605; 83735; 84484; 85025; 85610; 85730; 87040; 87081; 87804; 87880; 93005; 99285

== ENCOUNTER → 2017-11-14 | Outpatient (CLI) | payer MEDICARE ==
[~2017-11-14] MED LIST changes: +AZIT250T3 PO; +BENZ100 PO; -FAMO20TA2 PO
[2017-11-14 10:32] LABS: HEMATOCRIT 36.4 % (35.0-46.0); HEMOGLOBIN 11.6 GM/DL (11.6-15.3); MEAN CELL VOLUME 72.3 FL (80.0-100.0); MEAN CORPUSCULAR HEMOGLOBIN 23.1 PG (27.0-34.0); MEAN CORPUSCULAR HGB CONC 31.9 % (32.0-36.0); MEAN PLATELET VOLUME 7.6 FL (7.0-11.0); PLATELET COUNT 221 TH/MM3 (150-450); RED BLOOD COUNT 5.03 MIL/MM3 (4.00-5.30); RED CELL DISTRIBUTION WIDTH 19.4 % (11.6-17.2); WHITE BLOOD COUNT 5.4 TH/MM3 (4.0-11.0)
[2017-11-14 10:40] LABS: ALBUMIN 3.6 GM/DL (3.4-5.0); ALT (GPT) 25 U/L (10-53); BICARBONATE 25.9 MEQ/L (21.0-32.0); BLOOD UREA NITROGEN 36 MG/DL (7-18); CALCIUM 9.5 MG/DL (8.5-10.1); CHLORIDE 106 MEQ/L (98-107); CHOLESTEROL 99 MG/DL (120-200); CREATININE 1.67 MG/DL (0.50-1.00); GLOMERULAR FILTRATION RATE 29 ML/MIN (>89); GLUCOSE,FASTING 98 MG/DL (74-99); SODIUM (NA) 141 MEQ/L (136-145)
[2017-11-14 10:44] LABS: ALKALINE PHOSPHATASE 119 U/L (45-117); AST (GOT) 39 U/L (15-37); CHOLESTEROL/ HDL RATIO 2.51 RATIO; HDL CHOLESTEROL 39.4 MG/DL (40.0-60.0); LDL CHOLESTEROL 36 MG/DL (0-99); LDL CHOLESTEROL DIRECT 58 MG/DL (0-99); TOTAL BILIRUBIN ADULT 0.9 MG/DL (0.2-1.0); TOTAL PROTEIN 7.1 GM/DL (6.4-8.2); TRIGLYCERIDES 119 MG/DL (42-150)
== END ==
LOC: PLAB 07:00
PROVIDERS: ATTEND Family Medicine
DX: I25.10 Atherosclerotic heart disease of native coronary artery without angina pectoris (principal); I12.9 Hypertensive chronic kidney disease with stage 1 through stage 4 chronic kidney disease, or unspecified chronic kidney disease; N18.3 Chronic kidney disease, stage 3 (moderate); E78.2 Mixed hyperlipidemia
CPT/HCPCS: 36415; 80053; 80061; 83721; 85027

== ENCOUNTER 2018-06-18 11:18 | Observation (INO) ==
--- NOTE | 2018-06-18 11:39 | ED ---
HPI General Chief Complaint: Chest Pain Stated Complaint: chest pain Time Seen by Provider: 06/18/18 11:27 Source: patient and EMS Mode of arrival: EMS Limitations: no limitations History of Present Illness HPI narrative: 87-year-old female with PMH of CAD status post CABG, implanted pacemaker, angina, HTN, COPD presents to the ED via EMS for evaluation of chest pain. Patient describes the pain as a heaviness and a "funny feeling". Onset this morning just before breakfast. She denies associated palpitations, shortness of breath, nausea, vomiting, diaphoresis. She endorses chronic, "dry , hacking" cough. She states that she saw a commutator operator yesterday and was prescribed a rescue inhaler. She has not yet filled this prescription. The patient states that she took a total of 3 doses of sublingual nitroglycerin with no improvement of symptoms. This prompted her to call EMS. EMS report that they administered an aspirin, 2 more sublingual nitro and O2 via nasal cannula in route. On presentation patient reports the pain is 3/10. She states she is otherwise been feeling healthy with a good appetite, daily bowel movements. She denies dysuria, lower extremity edema. She is followed by Dr. Mendoza. Related Data Home Medications Medication Instructions Recorded Confirmed aspirin [Aspir-81] 81 mg PO DAILY 06/18/18 06/18/18 atorvastatin 20 mg PO DAILY 06/18/18 06/18/18 carvedilol 3.125 mg PO BID 06/18/18 06/18/18 cholecalciferol (vitamin D3) 2,000 unit PO DAILY 06/18/18 06/18/18 [Vitamin D3] clopidogrel 75 mg PO DAILY 06/18/18 06/18/18 eszopiclone 3 mg PO PRN PRN MDD 3mg 06/18/18 06/18/18 isosorbide mononitrate 30 mg PO QAM 06/18/18 06/18/18 spironolactone 25 mg PO DAILY 06/18/18 06/18/18 torsemide 20 mg PO DAILY 06/18/18 06/18/18 Allergies Allergy/AdvReac Type Severity Reaction Status Date / Time penicillin G Allergy Unknown [place] Verified 06/18/18 12:07 Sulfa (Sulfonamide Allergy Unknown UNKNOWN Verified 06/18/18 12:07 Antibiotics) Review of Systems ROS: all other systems reviewed are negative [facility] Medical History Medical History Atrial fibrillation (Acute) CVA (cerebral vascular accident) (Acute) Congestive heart failure (Acute) Diverticulosis (Acute) History of intervertebral disc disorder (Acute) Hx of atherosclerotic cardiovascular disease (Acute) Hx of chronic kidney disease (Acute) Hx of gastritis (Acute) Hx of spinal stenosis (Acute) Neuropathic pain, leg, bilateral (Acute) Pacemaker (Acute) Surgical History Surgical History Hx of heart bypass surgery (Acute) Social History Social History Substance History: No History of Abuse Second Hand Smoke Exposure: No Smoking Status: Never smoker How Often Do You Have a Drink Containing Alcohol: Monthly or less Recent Travel in [facility] within the Last 8 Weeks: No Recent Out of Country Travel within the Last 8 Weeks: No Exam Narrative Exam Narrative: GENERAL: Well-nourished, well-developed, pleasant white female in no acute distress. SKIN: Focused skin assessment warm/dry. HEAD: Atraumatic. Normocephalic. EYES: Pupils equal and round. No scleral icterus. No injection or drainage. ENT: No nasal bleeding or discharge. Mucous membranes pink and moist. NECK: Trachea midline. No JVD. CARDIOVASCULAR: Regular rate and rhythm. No murmur appreciated. CHEST: Nontender throughout without deformity or crepitus. No retractions. RESPIRATORY: No accessory muscle use. Clear to auscultation. Breath sounds equal bilaterally. GASTROINTESTINAL: Abdomen soft, non-tender, nondistended. Hepatic and splenic margins not palpable. MUSCULOSKELETAL: No obvious deformities. No clubbing. No cyanosis. Trace edema bilaterally. NEUROLOGICAL: Awake and alert. No obvious cranial nerve deficits. Motor grossly within normal limits. Normal speech. PSYCHIATRIC: Appropriate mood and affect; insight and judgment normal. Course Reevaluation(s) Reevaluation #1: On recheck the patient reports improvement of her chest pain. Time: 13:28 Initial Documented Vital Signs Temperature 98 F 06/18/18 11:34 Pulse Rate 65 06/18/18 11:34 Respiratory Rate 20 06/18/18 11:34 Blood Pressure 150/65 H 06/18/18 11:34 Pulse Oximetry 96 06/18/18 11:34 Last Documented Vital Signs Temperature 97.7 F 06/19/18 07:32 Pulse Rate 59 L 06/19/18 07:32 Respiratory Rate 16 12/06/18 07:32 Blood Pressure 133/60 12/06/18 07:32 Pulse Oximetry 96 06/19/18 07:32 Medical Decision Making FLIP Attestation FLIP supervised visit: Yes Attestation: I, Dr. Zacarias, have reviewed the advance practice practitioner's documentation and am in agreement, met with the patient face to face, made the diagnosis, and the medical decision making was done by me. *My assessment and Findings: [-] Patient is 87-year-old female presented to emergency room for chest pain evaluation. First set of troponin is negative, patient admitted for further evaluation. MDM Narrative Medical decision making narrative: CBC,87-year-old female with PMH of CAD status post CABG, implanted pacemaker, angina, HTN, COPD presents to the ED via EMS for evaluation of chest pain. Patient describes the pain as a heaviness and a "funny feeling". The patient states that she took a total of 3 doses of sublingual nitroglycerin with no improvement of symptoms. This prompted her to call EMS. EMS report that they administered an aspirin, 2 more sublingual nitro and O2 via nasal cannula in route. On presentation patient reports the pain is 3/10. She is followed by Dr. Mendoza. Heart rate 65, BP 150/65 on presentation. On physical exam there is no appreciable M/R/G. Scant end expiratory wheezing in the lung grant bilaterally. The patient was administered a single DuoNeb. CBC without acute findings. CMP with mild dehydration and creatinine of 1.74. Chronic per chart review. BNP 236. Chest x -ray with no acute findings. EKG without acute findings. Troponin negative x1. On recheck patient reports improvement of her symptoms. I discussed the workup with the patient as well as the recommendation for serial EKGs and cardiac enzymes and the chest pain center. The patient states that her rn correctional wanted her to have a stress test but she refused. She is agreeable to admission and evaluation today. Please see chest pain center notes for disposition. Medical Screen Exam Complete: Yes Emergency Medical Condition: Yes Differential Diagnosis Differential Diagnosis: Chest pain versus angina versus ACS versus COPD exacerbation versus CHF versus other Lab Data Result diagrams: 06/18/18 12:15 06/18/18 12:15 Lab Results 06/18/18 06/18/18 06/18/18 Range/Units 12:15 12:15 12:15 WBC 6.2 (4.0-11.0) th/mm3 RBC 4.64 (4.00-5.30) mil/mm3 Hgb 11.6 (11.6-15.3) gm/dL Hct 36.1 (35.0-46.0) % MCV 77.9 L (80.0-100.0) fL MCH 25.1 L (27.0-34.0) pg MCHC 32.1 (32.0-36.0) % RDW 19.2 H (11.6-17.2) % Plt Count 225 (150-450) th/mm3 MPV 7.3 (7.0-11.0) fL Neut % (Auto) 62.5 (16.0-70.0) % Lymph % (Auto) 13.7 (9.0-44.0) % Moody % (Auto) 13.2 H (0.0-8.0) % Eos % (Auto) 10.0 H (0.0-4.0) % Baso % (Auto) 0.6 (0.0-2.0) % Neut # (Auto) 3.9 (1.8-7.7) th/mm3 Lymph # (Auto) 0.8 L (1.0-4.8) th/mm3 Moody # (Auto) 0.8 (0.0-0.9) th/mm3 Eos # (Auto) 0.6 H (0.0-0.4) th/mm3 Baso # (Auto) 0.0 (0.0-0.2) th/mm3 WBC Differential . Differential Comment Auto diff final Sodium 140 (136-145) meq/L Potassium 4.1 (3.5-5.1) meq/L Chloride 107 (98-107) meq/L Carbon Dioxide 24.1 (21.0-32.0) meq/L Anion Gap 9 (5-15) meq/L BUN 31 H (7-18) mg/dL Creatinine 1.74 H (0.50-1.00) mg/dL Estimated GFR 28 L (>89) mL/min Random Glucose 94 (74-106) mg/dL Calcium 9.1 (8.5-10.1) mg/dL Total Bilirubin 0.7 (0.2-1.0) mg/dL AST 29 (15-37) U/L ALT 21 (10-53) U/L Alkaline Phosphatase 122 H (45-117) U/L Total Creatine Kinase (26-192) U/L CK-MB (CK-2) (0.5-3.6) ng/mL CK-MB (CK-2) % (0.0-4.0) % Troponin I 0.05 (0.02-0.05) ng/mL B-Natriuretic Peptide 236 H (0-100) pg/mL Total Protein 6.9 (6.4-8.2) g/dL Albumin 3.5 (3.4-5.0) g/dL Urine Color (Yellw/Straw) Urine Clarity (Clear) Urine pH (5.0-8.5) Ur Specific [place] (1.002-1.035) Urine Protein (Neg-Trace) mg/dL Urine Glucose (UA) (Negative) mg/dL Urine Ketones (Negative) mg/dL Urine Occult Blood (Negative) Urine Nitrate (Negative) Urine Bilirubin (Negative) Urine Urobilinogen (Less than 2) mg/dL Ur Leukocyte Esterase (Negative) Urine RBC (0-3) /hpf Urine WBC (0-5) /hpf Hyaline Casts (0-3) /lpf Urine Mucus (Occasional) /lpf Micro UA Comment Ur Microscopic Review Urine Culture Comments 06/18/18 06/18/18 06/18/18 Range/Units 12:15 17:00 20:10 WBC (4.0-11.0) th/mm3 RBC (4.00-5.30) mil/mm3 Hgb (11.6-15.3) gm/dL Hct (35.0-46.0) % MCV (80.0-100.0) fL MCH (27.0-34.0) pg MCHC (32.0-36.0) % RDW (11.6-17.2) % Plt Count (150-450) th/mm3 MPV (7.0-11.0) fL Neut % (Auto) (16.0-70.0) % Lymph % (Auto) (9.0-44.0) % Moody % (Auto) (0.0-8.0) % Eos % (Auto) (0.0-4.0) % Baso % (Auto) (0.0-2.0) % Neut # (Auto) (1.8-7.7) th/mm3 Lymph # (Auto) (1.0-4.8) th/mm3 Moody # (Auto) (0.0-0.9) th/mm3 Eos # (Auto) (0.0-0.4) th/mm3 Baso # (Auto) (0.0-0.2) th/mm3 WBC Differential Differential Comment Sodium (136-145) meq/L Potassium (3.5-5.1) meq/L Chloride (98-107) meq/L Carbon Dioxide (21.0-32.0) meq/L Anion Gap (5-15) meq/L BUN (7-18) mg/dL Creatinine (0.50-1.00) mg/dL Estimated GFR (>89) mL/min Random Glucose (74-106) mg/dL Calcium (8.5-10.1) mg/dL Total Bilirubin (0.2-1.0) mg/dL AST (15-37) U/L ALT (10-53) U/L Alkaline Phosphatase (45-117) U/L Total Creatine Kinase 220 H 205 H (26-192) U/L CK-MB (CK-2) 7.3 H 7.3 H (0.5-3.6) ng/mL CK-MB (CK-2) % 3.3 3.6 (0.0-4.0) % Troponin I 0.04 0.05 (0.02-0.05) ng/mL B-Natriuretic Peptide (0-100) pg/mL Total Protein (6.4-8.2) g/dL Albumin (3.4-5.0) g/dL Urine Color Straw (Yellw/Straw) Urine Clarity Clear (Clear) Urine pH 6.0 (5.0-8.5) Ur Specific [place] 1.006 (1.002-1.035) Urine Protein Negative (Neg-Trace) mg/dL Urine Glucose (UA) Negative (Negative) mg/dL Urine Ketones Negative (Negative) mg/dL Urine Occult Blood Negative (Negative) Urine Nitrate Negative (Negative) Urine Bilirubin Negative (Negative) Urine Urobilinogen 1.0 (Less than 2) mg/dL Ur Leukocyte Esterase Negative (Negative) Urine RBC Less than 1 (0-3) /hpf Urine WBC 1 (0-5) /hpf Hyaline Casts 1 (0-3) /lpf Urine Mucus Few H (Occasional) /lpf Micro UA Comment Culture not ind Ur Microscopic Review Not Reportable Urine Culture Comments Culture not ind Imaging Data Radiologist's impression: Chest X-Ray 06/18/18 11:33 CONCLUSION: Pacer, otherwise negative for infiltrative or failure. ECG Data Attestation: I personally reviewed and interpreted this ECG as follows: Interpretation: EKG rate 50, paced rhythm. No acute ST changes. Reviewed by Dr. Amanda. Discharge Plan Discharge Disposition Patient Disposition: ED Admit(ED Internal Use Only) Discharge Order Discharge Orders: ED Use Only Admit Order (Routine); Ordered 06/18/18 Ordered By: Yolette Fowler Physicians Team ED Provider: Angel Zacarias ED Midlevel Provider: Yolette Fowler Primary Care Provider: Piter Mendoza Attending Provider: Taye Dean Status ED Status: Left Department Discharge Information Discharge Date/Time: 06/18/18 17:35
--- NOTE | 2018-06-18 12:44 | XR ---
EXAM DATE: 06/18/2018 12:41 PM EST AGE/SEX: 87 years / Female INDICATIONS: Chest pain. CLINICAL DATA: This is the patient's initial encounter. Patient reports that signs and symptoms have been present for 1 day and indicates a pain score of 3/10. MEDICAL/SURGICAL HISTORY: . Cardiovascular disease. Diverticulitis. Carcinoma, colon. Hypertens ion . CABG. Pacemaker. Tubal ligation. Hysterectomy COMPARISON: [facility], CHEST PA & LAT, 08/29/2017. . FINDINGS: Pacemaker on the left. Cardiac silhouette is mildly prominent. Pulmonary vascularity is normal. Evide nce for previous bypass is noted. Calcified right hilar lymph nodes Negative for pneumothorax, conges tive failure or pleural effusion. The portion of the bony skeleton visualized is unremarkable. CONCLUSION: Pacer, otherwise negative for infiltrative or failure. Electronically signed by: Devin Fallon MD 06/18/2018 12:43 PM EST
[2018-06-18 12:58] LABS: Bilirubin,Urine Negative (Negative); Clarity,Urine Clear (Clear); Color,Urine Straw (Yellw/Straw); Glucose,Urine (UA) Negative (Negative); Hyaline Casts,Urine 1 /lpf (0-3); Leukocyte Esterase,Urine Negative (Negative); Mucus,Urine Few /lpf (Occasional); Nitrite,Urine Negative (Negative); Specific Gravity,Urine 1.006 (1.002-1.035)
[2018-06-18 13:00] LABS: Baso % (Auto) 0.6 % (0.0-2.0); Eos # (Auto) 0.6 th/mm3 (0.0-0.4); Hematocrit 36.1 % (35.0-46.0); Hemoglobin 11.6 gm/dL (11.6-15.3); Lymph # (Auto) 0.8 th/mm3 (1.0-4.8); Lymph % (Auto) 13.7 % (9.0-44.0); Mean Corpuscular HGB Conc 32.1 % (32.0-36.0); Mean Corpuscular Hemoglobin 25.1 pg (27.0-34.0); Mean Corpuscular Volume 77.9 fL (80.0-100.0); Mean Platelet Volume 7.3 fL (7.0-11.0); Mono # (Auto) 0.8 th/mm3 (0.0-0.9); Mono % (Auto) 13.2 % (0.0-8.0); Neut # (Auto) 3.9 th/mm3 (1.8-7.7); Neut % (Auto) 62.5 % (16.0-70.0); Platelet Count 225 th/mm3 (150-450); Red Blood Count 4.64 mil/mm3 (4.00-5.30); Red Cell Distribution Width 19.2 % (11.6-17.2); White Blood Count 6.2 th/mm3 (4.0-11.0)
[2018-06-18 13:08] LABS: Albumin 3.5 g/dL (3.4-5.0); Anion Gap 9 meq/L (5-15); Aspartate Aminotransferase 29 U/L (15-37); Blood Urea Nitrogen 31 mg/dL (7-18); Calcium 9.1 mg/dL (8.5-10.1); Carbon Dioxide 24.1 meq/L (21.0-32.0); Chloride 107 meq/L (98-107); Glomerular Filtration Rate 28 mL/min (>89); Glucose,Random 94 mg/dL (74-106); Potassium 4.1 meq/L (3.5-5.1); Sodium 140 meq/L (136-145)
[2018-06-18 13:09] LABS: Alanine Aminotransferase 21 U/L (10-53)
[2018-06-18 13:13] LABS: Alkaline Phosphatase 122 U/L (45-117); Total Protein 6.9 g/dL (6.4-8.2); Troponin I 0.05 ng/mL (0.02-0.05)
[2018-06-18] MEDS ORDERED: Acetaminophen 500 MG Tablet PO PRN (14:07)
--- NOTE | 2018-06-18 14:48 | P.HPCA ---
Addendum entered and electronically signed by Taye Dean MD 06/18/18 15: 51: Agree with above. ECG shows paced rhythm. Await follow up troponin levels. Consider lexiscan tomorrow if normal. Original Note: History of Present Illness Primary Care Physician: Piter Mendoza MD Chief Complaint: Chest pain History of Present Illness: 87 year old female with extensive history including CABGx5 (2001), atrial fibrillation, chronic kidney disease, congestive heart failure, pacemaker, type for diverticulosis and chronic abdominal pain presents emergency room for further evaluation of chest pressure. Onset upon awakening around 0700. Location substernal. Characterized as "a funny feeling or pressure." Mild in severity. Intermittent short, shooting pain to left anterior jaw. Associated symptoms included slight shortness of breath. No nausea, vomiting, or diaphoresis. No precipitating factors. Took x3 Nitro SL without relief after a few hours of discomfort, no relief with nitro. Her and niece encouraged follow up in ER for further evaluation. EMS gave additional x2 sprays of nitro, reports second spray of nitro relieved pain completely far quickly. Reports having an angina attack Saturday which was relieved after x2 nitro SL. Denies today symptoms being similar to discomfort on Saturday. Reports in the past required taking Nitro on a regular basis, however this year rarely requires Nitro. Follows with Dr. Mendoza, stating Dr. Mendoza requested Lexiscan for the past 2 years which she refused. Tells me after I speak with Dr. Mendoza, if he recommended a stress test she will agree to test. After further discussion if stress testing positive, possibly a cardiac catheterization would be recommended she states she would not agree to a cardiac catheterization. Also tells me she has a DNR and would not like aggressive measures. No recent illness , fever, or injury. Reports dry cough for last 1.5 week and seen pulmonary MD yesterday and was given a rescue inhaler. Seen PCP last week and states "all my blood work was fine." Reports increase stress, diagnoses with lung cancer. Past cardiac testing 03/18/15 Echocardiogram 10/13/09 Cardiac catheterization (Dr. Moreira) Conclusions: 1. Patency of 4 out of 5 to the patient's bypass grafts with occlusion of one vein graft as described above. 2. Relatively normal revascularization except for the distal one third of the left anterior descending artery for the patient has on graft disease that could potentially cause apical ischemia. 3. Left ventricular triopathy. 4. Systemic hypertension. 5. Normal systolic and diastolic function. 2002 CABGx5 (Dr. Paul) SVG to posterolateral vessels, SVG to posterior descending, SVG to first diagonal, SVG to distal circumflex, YOUNG to mid LAD, Social history Known CAD. No known diabetes. No taking a statin. Lives with at [facility]. Ambulates with walker. - Diagnosis (1) Chest pain of uncertain etiology (2) History of CHF (congestive heart failure) (3) History of coronary artery disease (4) Hx of chronic kidney disease Review of Systems All other systems reviewed negative except as stated in HPI PMFSH - History History Provided By: Patient, Family Member - Medical History Medical History: Medical History (Last Updated 06/18/18 @ 15:11 by LEANNA Woo) Atrial fibrillation CVA (cerebral vascular accident) Congestive heart failure Diverticulosis History of intervertebral disc disorder Hx of atherosclerotic cardiovascular disease Hx of chronic kidney disease Hx of gastritis Hx of spinal stenosis Neuropathic pain, leg, bilateral Pacemaker - Surgical History Surgical History: Surgical History (Last Updated 06/18/18 @ 15:10 by LEANNA Woo) Hx of heart bypass surgery - Tobacco History Tobacco Use In Past 30 Days: No Smoking Status: Never smoker - Alcohol History How Often Do You Have a Drink Containing Alcohol: Never - Substance Use History Substance History: No History of Abuse - Travel History Recent Travel in the [facility] Within the Last 8 Weeks: No - Immunization History Tetanus Immunization: <5 Years Medications and Allergies Active Medications: Active Medications Acetaminophen (Tylenol) 500 mg PO Q4H PRN PRN Reason: HEADACHE Nitroglycerin (Nitrostat Sl) 0.4 mg SL Q5M PRN PRN Reason: CHEST PAIN Ondansetron HCl (Zofran Inj) 4 mg IV.PUSH Q6H PRN PRN Reason: NAUSEA Sodium Chloride (Ns Flush) 2 ml IV.FLUSH UNSCH PRN PRN Reason: FLUSH AFTER USING IV ACCESS Sodium Chloride (Ns Flush) 2 ml IV.FLUSH BID YAMEL Allergies Allergy/AdvReac Type Severity Reaction Status Date / Time penicillin G Allergy Unknown [place] Verified 06/18/18 12:07 Sulfa (Sulfonamide Allergy Unknown UNKNOWN Verified 06/18/18 12:07 Antibiotics) Home Medications Medication Instructions Recorded Confirmed Type aspirin [Aspir-81] 81 mg PO DAILY 06/18/18 06/18/18 History atorvastatin 20 mg PO DAILY 06/18/18 06/18/18 History carvedilol 3.125 mg PO BID 06/18/18 06/18/18 History cholecalciferol (vitamin D3) 2,000 unit PO DAILY 06/18/18 06/18/18 History [Vitamin D3] clopidogrel 75 mg PO DAILY 06/18/18 06/18/18 History eszopiclone 3 mg PO PRN PRN MDD 3mg 06/18/18 06/18/18 History isosorbide mononitrate 30 mg PO QAM 06/18/18 06/18/18 History spironolactone 25 mg PO DAILY 06/18/18 06/18/18 History torsemide 20 mg PO DAILY 06/18/18 06/18/18 History Exam Vital signs: Vital Signs 06/18/18 11:34 06/18/18 11:36 06/18/18 11:48 Temperature 98 F Pulse Rate 65 57 L Respiratory Rate 20 20 Blood Pressure 150/65 H Pulse Oximetry 96 96 Intake & Output 06/17/18 06/18/18 06/18/18 18:59 06:59 18:59 Weight 69.853 kg Narrative: GENERAL: Alert WN, WD, NAD, pleasant, elderly, female HEAD: NC, AT EYES: Sclera clear, conjunctiva without injection ENT: Mucous membranes pink and moist NECK: Supple, no masses, trachea midline. Positive for JVD. CV: RRR, without murmur, rub, gallop, S1-S2. Chest wall nontender to palpation. Left anterior chest implantable device easily palpated. RESP: Diminished bilateral bases, clear upper lobes, no crackles, wheeze, rhonchi, symmetrical chest rise, nonlabored, able to speak in full sentences ABD: Soft, NT, ND, no masses, positive bowel tones EXT: Pulses +1x4, no dependent edema, bilateral lower leg varicosities MS: Normal tone x4 extremities, nontender, no obvious deformities, full range of motion NEURO: Motor strength 5/5 PSYCH: A+O x3, pleasant affect, appropriate speech, mood, insight and judgment SKIN: Normal turgor, normal texture, no lesions, no rashes, decreased bilateral lower extremities hair distribution, mid chest surgical scar Results 06/18/18 12:15 06/18/18 12:15 Cardiac Enzymes 06/18/18 06/18/18 Range/Units 12:15 12:15 AST 29 (15-37) U/L Troponin I 0.05 (0.02-0.05) ng/mL B-Natriuretic Peptide 236 H (0-100) pg/mL Coagulation 06/18/18 Range/Units 12:15 B-Natriuretic Peptide 236 H (0-100) pg/mL CBC 06/18/18 Range/Units 12:15 WBC 6.2 (4.0-11.0) th/mm3 RBC 4.64 (4.00-5.30) mil/mm3 Hgb 11.6 (11.6-15.3) gm/dL Hct 36.1 (35.0-46.0) % Plt Count 225 (150-450) th/mm3 Neut # (Auto) 3.9 (1.8-7.7) th/mm3 Lymph # (Auto) 0.8 L (1.0-4.8) th/mm3 [place] # (Auto) 0.8 (0.0-0.9) th/mm3 Eos # (Auto) 0.6 H (0.0-0.4) th/mm3 Baso # (Auto) 0.0 (0.0-0.2) th/mm3 Comprehensive Metabolic Panel 06/18/18 Range/Units 12:15 Sodium 140 (136-145) meq/L Potassium 4.1 (3.5-5.1) meq/L Chloride 107 (98-107) meq/L Carbon Dioxide 24.1 (21.0-32.0) meq/L BUN 31 H (7-18) mg/dL Creatinine 1.74 H (0.50-1.00) mg/dL Calcium 9.1 (8.5-10.1) mg/dL AST 29 (15-37) U/L ALT 21 (10-53) U/L Alkaline Phosphatase 122 H (45-117) U/L Total Protein 6.9 (6.4-8.2) g/dL Albumin 3.5 (3.4-5.0) g/dL Intake and Output 06/17/18 06/18/18 06/18/18 22:59 06:59 14:59 Other: Weight 69.853 kg Patient Weight 06/19/18 06:59 Weight 69.853 kg - Imaging and Cardiology Imaging: Impressions Chest X-Ray 06/18/18 11:33 CONCLUSION: Pacer, otherwise negative for infiltrative or failure. EKG interpretations - EKG EKG results cardiology: WNL (V paced) Caprini VTE Risk Assessment Caprini VTE Risk Assessment: Moderate/High Risk (score >= 2) Caprini Risk Assessment Model: Point Value = 1 Point Value = 2 Point Value = 3 Point Value = 5 Age 41-60 Minor surgery BMI > 25 kg/m2 Swollen legs Varicose veins or History of unexplained or recurrent spontaneous Oral contraceptives or hormone replacement Sepsis (< 1 month) Serious lung disease, including pneumonia (< 1 month) Abnormal pulmonary function Acute myocardial infarction Congestive heart failure (< 1 month) History of inflammatory bowel disease Medical patient at bed rest Age 61-74 Arthroscopic surgery Major open surgery (> 45 min) Laparoscopic surgery (> 45 min) Malignancy Confined to bed (> 72 hours) Immobilizing plaster cast Central venous access Age >= 75 History of VTE Family history of VTE Factor V Leiden Prothrombin [id number] Lupus anticoagulant Anticardiolipin antibodies Elevated serum homocysteine Heparin-induced thrombocytopenia Other congenital or acquired thrombophilia Stroke (< 1 month) Elective arthroplasty Hip, pelvis, or leg fracture Acute spinal cord injury (< 1 month) Prophylaxis Regimen: Total Risk Factor Score Risk Level Prophylaxis Regimen 0-1 Low Early ambulation 2 Moderate Order ONE of the following: *Sequential Compression Device (SCD) *Heparin 5000 units SQ BID 3-4 Higher Order ONE of the following medications: *Heparin 5000 units SQ TID *Enoxaparin/Lovenox 40 mg SQ daily (WT < 150 kg, CrCl > 30 mL/min) *Enoxaparin/Lovenox 30 mg SQ daily (WT < 150 kg, CrCl > 10-29 mL/min) *Enoxaparin/Lovenox 30 mg SQ BID (WT < 150 kg, CrCl > 30 mL/min) AND/OR *Sequential Compression Device (SCD) 5 or more Highest Order ONE of the following medications: *Heparin 5000 units SQ TID (Preferred with Epidurals) *Enoxaparin/Lovenox 40 mg SQ daily (WT < 150 kg, CrCl > 30 mL/min) *Enoxaparin/Lovenox 30 mg SQ daily (WT < 150 kg, CrCl > 10-29 mL/min) *Enoxaparin/Lovenox 30 mg SQ BID (WT < 150 kg, CrCl > 30 mL/min) AND *Sequential Compression Device (SCD) Assessment and Plan - Assessment (1) Chest pain of uncertain etiology Code(s): R07.89 - Other chest pain Status: Acute Plan: Mid to chest pain center. Continue ruling out ACS with 3 sets of EKGs and cardiac enzymes. Will be seen and evaluated by Dr. Taye Dean. Call placed to patient's composition mixer, Dr. Mckenna. Spoke with Dr. Mendzoa's nurse, Donita, who will update Dr. Mendoza with patient's admission to chest pain center. Patient has refused chemical testing in the past, however open for further testing at this time. Further recommendation to follow after assessment by [facility] composition mixer this afternoon. Patient is agreeable to plan of care. (2) History of CHF (congestive heart failure) Code(s): Z86.79 - Personal history of other diseases of the circulatory system Status: Chronic Plan: Continue spironolactone and furosemide. BNP 236 with positive JVD, however chest x-ray not suggestive for acute failure. Continue to monitor. (3) History of coronary artery disease Code(s): Z86.79 - Personal history of other diseases of the circulatory system Status: Chronic Plan: Continue Plavix, aspirin, carvedilol, and isosorbide. (4) Hx of chronic kidney disease Code(s): Z87.448 - Personal history of other diseases of urinary system Status : Acute Plan: Continue spironolactone and torsemide. Follow up with lands resource manager upon discharge.
--- NOTE | 2018-06-18 15:16 | ECG ---
Date Performed: 06/18/2018 Time Performed: 11:45:51 PTAGE: 87 years EKG: ELECTRONIC VENTRICULAR PACEMAKER ABNORMAL RHYTHM ECG PREVIOUS TRACING : 08/29/2017 14.02 Compared to previous tracing, V pacing now present DOCTOR: Maegan Schmitt Interpretating Date/Time 06/18/2018 15:14:31
[2018-06-18 18:01] LABS: Troponin I 0.04 ng/mL (0.02-0.05)
[2018-06-18 18:14] LABS: CKMB Percent 3.3 % (0.0-4.0); Creatine Kinase MB 7.3 ng/mL (0.5-3.6)
[2018-06-18 21:06] LABS: Troponin I 0.05 ng/mL (0.02-0.05)
[2018-06-18 21:18] LABS: CKMB Percent 3.6 % (0.0-4.0); Creatine Kinase MB 7.3 ng/mL (0.5-3.6)
--- NOTE | 2018-06-19 08:15 | P.PNCA ---
Subjective Interval history: No further chest pressure or discomfort. Offers no complaints. Medications and Allergies Active Medications: Active Medications Acetaminophen (Tylenol) 500 mg PO Q4H PRN PRN Reason: HEADACHE Aspirin (Ecotrin) 81 mg PO DAILY [facility] Atorvastatin Calcium (Lipitor) 20 mg PO DAILY [facility] Carvedilol (Coreg) 3.125 mg PO BID [facility] Last Admin: 06/19/18 00:12 Dose: 3.125 mg Clopidogrel Bisulfate (Plavix) 75 mg PO DAILY [facility] Eszopiclone (Lunesta) 3 mg PO DAILY@HS PRN PRN Reason: Insomnia Last Admin: 06/19/18 00:12 Dose: 3 mg Nitroglycerin (Nitrostat Sl) 0.4 mg SL Q5M PRN PRN Reason: CHEST PAIN Nitroglycerin (Nitro-Bid 2% Oint) 1 inch TOPICAL Q6HR [facility] Last Admin: 06/19/18 05:32 Dose: 1 inch Ondansetron HCl (Zofran Inj) 4 mg IV.PUSH Q6H PRN PRN Reason: NAUSEA Sodium Chloride (Ns Flush) 2 ml IV.FLUSH UNSCH PRN PRN Reason: FLUSH AFTER USING IV ACCESS Sodium Chloride (Ns Flush) 2 ml IV.FLUSH BID [facility] Last Admin: 06/18/18 22:39 Dose: 2 ml Spironolactone (Aldactone) 25 mg PO DAILY [facility] Torsemide (Demadex) 20 mg PO DAILY [facility] Vitamin D (Vitamin D3) 2,000 unit PO DAILY [facility] Allergies Allergy/AdvReac Type Severity Reaction Status Date / Time penicillin G Allergy Unknown [place] Verified 06/18/18 12:07 Sulfa (Sulfonamide Allergy Unknown UNKNOWN Verified 06/18/18 12:07 Antibiotics) Home Medications Medication Instructions Recorded Confirmed Type aspirin [Aspir-81] 81 mg PO DAILY 06/18/18 06/18/18 History atorvastatin 20 mg PO DAILY 06/18/18 06/18/18 History carvedilol 3.125 mg PO BID 06/18/18 06/18/18 History cholecalciferol (vitamin D3) 2,000 unit PO DAILY 06/18/18 06/18/18 History [Vitamin D3] clopidogrel 75 mg PO DAILY 06/18/18 06/18/18 History eszopiclone 3 mg PO PRN PRN MDD 3mg 06/18/18 06/18/18 History isosorbide mononitrate 30 mg PO QAM 06/18/18 06/18/18 History spironolactone 25 mg PO DAILY 06/18/18 06/18/18 History torsemide 20 mg PO DAILY 06/18/18 06/18/18 History Physical Exam Vital signs: Vital Signs 06/18/18 11:34 06/18/18 11:36 06/18/18 11:48 Temperature 98 F Pulse Rate 65 57 L Respiratory Rate 20 20 Blood Pressure 150/65 H Pulse Oximetry 96 96 06/18/18 17:35 06/18/18 19:36 06/18/18 20:00 Temperature 98.1 F Pulse Rate 58 L 67 Respiratory Rate 18 12 Blood Pressure 150/66 H Pulse Oximetry 98 06/19/18 00:00 06/19/18 03:53 06/19/18 07:32 Temperature 98.0 F 98.1 F 97.7 F Pulse Rate 67 68 59 L Respiratory Rate 12 16 16 Blood Pressure 173/78 H 134/60 133/60 Pulse Oximetry 97 94 L 96 Intake & Output 06/18/18 06/19/18 06/19/18 18:59 06:59 18:59 Intake Total 240 / 240 Balance 240 / 240 Weight 69.853 kg 69.853 kg Intake: Oral 240 / 240 Other: # Voids 1 1 Date of Last Bowel Movement 06/18/18 Weight On Admission 69.853 kg - Constitutional no acute distress - Routine HEENT Exam Head: Present: normocephalic, atraumatic ENT: Present: mucous membranes moist - Routine Respiratory Exam Present: CTA bilaterally. Absent: rhonchi, wheezes, crackles - Routine Cardiovascular Exam Present: RRR, murmur Results 06/18/18 12:15 06/18/18 12:15 Cardiac Enzymes 06/18/18 06/18/18 06/18/18 Range/Units 12:15 12:15 17:00 AST 29 (15-37) U/L CK-MB (CK-2) 7.3 H (0.5-3.6) ng/mL Troponin I 0.05 0.04 (0.02-0.05) ng/mL B-Natriuretic Peptide 236 H (0-100) pg/mL 06/18/18 Range/Units 20:10 AST (15-37) U/L CK-MB (CK-2) 7.3 H (0.5-3.6) ng/mL Troponin I 0.05 (0.02-0.05) ng/mL B-Natriuretic Peptide (0-100) pg/mL Coagulation 06/18/18 Range/Units 12:15 B-Natriuretic Peptide 236 H (0-100) pg/mL CBC 06/18/18 Range/Units 12:15 WBC 6.2 (4.0-11.0) th/mm3 RBC 4.64 (4.00-5.30) mil/mm3 Hgb 11.6 (11.6-15.3) gm/dL Hct 36.1 (35.0-46.0) % Plt Count 225 (150-450) th/mm3 Neut # (Auto) 3.9 (1.8-7.7) th/mm3 Lymph # (Auto) 0.8 L (1.0-4.8) th/mm3 [place] # (Auto) 0.8 (0.0-0.9) th/mm3 Eos # (Auto) 0.6 H (0.0-0.4) th/mm3 Baso # (Auto) 0.0 (0.0-0.2) th/mm3 Comprehensive Metabolic Panel 06/18/18 Range/Units 12:15 Sodium 140 (136-145) meq/L Potassium 4.1 (3.5-5.1) meq/L Chloride 107 (98-107) meq/L Carbon Dioxide 24.1 (21.0-32.0) meq/L BUN 31 H (7-18) mg/dL Creatinine 1.74 H (0.50-1.00) mg/dL Calcium 9.1 (8.5-10.1) mg/dL AST 29 (15-37) U/L ALT 21 (10-53) U/L Alkaline Phosphatase 122 H (45-117) U/L Total Protein 6.9 (6.4-8.2) g/dL Albumin 3.5 (3.4-5.0) g/dL Intake and Output 06/18/18 06/19/18 06/19/18 22:59 06:59 14:59 Intake Total 240 / 240 Balance 240 / 240 Intake: Oral 240 / 240 Other: # Voids 1 1 Date of Last Bowel Movement 06/18/18 06/18/18 Weight 69.853 kg 69.853 kg Weight On Admission 69.853 kg - Imaging and Cardiology Imaging: Impressions Chest X-Ray 06/18/18 11:33 CONCLUSION: Pacer, otherwise negative for infiltrative or failure. Assessment and Plan - Assessment (1) Chest pain of uncertain etiology Code(s): R07.89 - Other chest pain Status: Acute Plan: ACS ruled out with 3 sets of EKGs and cardiac enzymes. Monitor on telemetry overnight. No further chest pain. Proceed with plan nuclear chemical testing this morning. If unremarkable, plans are to discharge home with follow-up primary care provider and her endodontics dentist.. (2) History of CHF (congestive heart failure) Code(s): Z86.79 - Personal history of other diseases of the circulatory system Status: Chronic Plan: Continue spironolactone and furosemide. (3) History of coronary artery disease Code(s): Z86.79 - Personal history of other diseases of the circulatory system Status: Chronic Plan: Continue Plavix, aspirin, carvedilol, and isosorbide. (4) Hx of chronic kidney disease Code(s): Z87.448 - Personal history of other diseases of urinary system Status : Acute Plan: Continue spironolactone and torsemide. Follow up with video tape editor upon discharge.
[2018-06-19] MEDS ORDERED: Torsemide 20 MG Tablet PO SCH (09:00)
[2018-06-19] MEDS ORDERED: Spironolactone 25 MG Tablet PO SCH (09:00)
[2018-06-19] MEDS ORDERED: Regadenoson Inj 0.4 MG/5 ML Syringe IV.PUSH ONE (09:54)
--- NOTE | 2018-06-19 11:44 | TR ---
Date Performed: 06/19/2018 Time Performed: 09:56:49 DOCTOR: Umer Allen DRUG LIST: CLINICAL HISTORY: REASON FOR TEST: REASON FOR ENDING: OBSERVATION: CONCLUSION: Lexiscan stress test was performed under standard four minute protocol. Radionuclide was injected one minute prior to ending the test. Non specific electrocardiographic abormalities wer e present suggestive but not diagnostic of ischemia. Nuclear imaging and interpretation are pending. COMMENTS:
--- NOTE | 2018-06-19 11:54 | ECG ---
Date Performed: 06/18/2018 Time Performed: 16:00:53 PTAGE: 87 years EKG: ELECTRONIC VENTRICULAR PACEMAKER -- No further analysis and no prior tracing PREVIOUS TRACING : 06/18/2018 11.45 DOCTOR: Umer Allen Interpretating Date/Time 06/19/2018 11:53:17
--- NOTE | 2018-06-19 11:54 | ECG ---
Date Performed: 06/18/2018 Time Performed: 20:09:46 PTAGE: 87 years EKG: Paced ventricular rhythm unchanged from prior tracing PREVIOUS TRACING : 06/18/2018 16.00 DOCTOR: Umer Allen Interpretating Date/Time 06/19/2018 11:53:38
--- NOTE | 2018-06-19 11:54 | NM ---
EXAM DATE: 06/19/2018 11:39 AM EST AGE/SEX: 87 years / Female INDICATIONS:Angina. Congestive heart failure Substernal chest pain. CLINICAL DATA: This is the patient's initial encounter. Patient reports that signs and symptoms have been present for 1 day and indicates a pain score of 2/10. MEDICAL/SURGICAL HISTORY: Hypertension. Renal failure, chronic. Atrial fibrillation. [place] r. CABG. COMPARISON: No prior exams available for comparison. DOSE: 8.6 mCi Tc 99m Myoview at rest 26.2 mCi [id number] at stress 0.4 mg Lexiscan STRESS SYMPTOMS: Short of breath. EJECTION FRACTION: 83 % TECHNIQUE: The patient underwent pharmacologic stress with infusion of prescribed dose. Continuous ECG tracing was monitored during stress. Gated SPECT imaging was performed after stress and conventi onal SPECT imaging was performed at rest. The examination was performed on a SPECT/CT scanner, both attenuation and non-corrected datasets were reviewed. FINDINGS: Distribution: The maximum perfused segment at stress is in the anteroseptal wall. Perfusion Study: The pattern of perfusion at stress is within normal limits. No fixed or reversible perfusion defect is identified. Gated Study: There are intact wall motion and wall thickening without hypokinetic or dyskinetic segm ents. The ejection fraction is calculated at 83%. RISK CATEGORY: Low (<1% Annual Motality Rate) CONCLUSION: 1. No left ventricle perfusion abnormality is identified. 2. Normal left ventricle wall motion and ejection fraction. Electronically signed by: Tomasz Rutledge MD 06/19/2018 11:53 AM EST
== END 2018-06-19 13:59 | disposition home or self-care (01) ==
LOC: NEPC 11:18 → HSDI 13:34 → HSDC 13:34 → NEPHCDU 17:35
PROVIDERS: ADMIT Internal Medicine Cardiovascular Disease; ATTEND Internal Medicine Cardiovascular Disease